=== PATIENT | male | born 1940 | race Caucasian/White ===

== ENCOUNTER 2016-10-07 13:53 | Emergency (ER) | payer MEDICARE, BC ==
[2016-10-07 14:01] VITALS: BP 126/74
--- NOTE | 2016-10-07 14:58 | EDM.PDOC ---
ED HPI GENERAL MEDICAL PROBLEM - General Chief Complaint: Upper Extremity Injury/Pain Stated Complaint: finger laceration Time Seen by Provider: 10/07/16 14:09 Source of Information: Reports: Patient History Limitations: Reports: No Limitations - History of Present Illness INITIAL COMMENTS - FREE TEXT/NARRATIVE: Patient is a 75-year-old was working on his garage door when he caught his hand and finger on the tension spring at that time he noticed that he had cut his finger and came in for evaluation and treatment denies significant pain at this time difficulty extending finger Onset: Today Onset Time: 12:30 Duration: Hour(s):, Other Location: Reports: Upper Extremity, Left Front/Back Body Image: 1 - laceration 4th finger distalend Quality: Reports: Dull Severity: Severe Improves with: Reports: None Worsens with: Reports: Movement Context: Reports: Activity Associated Symptoms: Reports: No Other Symptoms - Related Data Allergies Allergy/AdvReac Type Severity Reaction Status Date / Time No Known Allergies Allergy Verified 08/31/13 10:11 Home Meds: Home Meds Acetaminophen with Codeine [Tylenol with Codeine #3 Tablet] 1 each PO Q6HR #20 tablet 10/07/16 [Rx] Alendronate Sodium [Alendronate] 70 mg PO FR 10/07/16 [History] Aspirin [Adult Low Dose Aspirin EC] 81 mg PO DAILY 10/07/16 [History] Biotin 1 mg PO DAILY 10/07/16 [History] Calcium Carbonate [Calcium] 1,000 mg pe PO DAILY 10/07/16 [History] Cephalexin [Keflex] 500 mg PO Q6HR #30 capsule 10/07/16 [Rx] Cyanocobalamin (Vitamin B-12) [[place] B-12] 1,000 mcg PO DAILY 10/07/16 [ History] DULoxetine [Cymbalta] 60 mg PO DAILY 10/07/16 [History] Insulin Glarg,Human.Rec.Analog [LantUS Solostar] 15 - 20 units SUBCUT BEDTIME [History] Levothyroxine 25 mg PO DAILY 10/07/16 [History] Magnesium Amino Acid Chelate [Magnesium] 27 mg PO DAILY 10/07/16 [History] Multivitamin [Multi-Vitamin Daily] 1 mg PO DAILY 10/07/16 [History] Review of Systems - Review of Systems Review Of Systems: ROS reveals no pertinent complaints other than HPI. ED EXAM, GENERAL - Physical Exam Exam: See Below Exam Limited By: No Limitations General Appearance: Alert, WD/WN Eye Exam: Bilateral Eye: Normal Inspection Ears: Normal External Exam, Normal Canal Nose: Normal Inspection Throat/Mouth: Normal Inspection Head: Atraumatic, Normocephalic Neck: Normal Inspection, Supple, Non-Tender, Full Range of Motion Respiratory/Chest: No Respiratory Distress, Lungs Clear, Normal Breath Sounds, No Accessory Muscle Use, Chest Non-Tender Cardiovascular: Normal Peripheral Pulses, Regular Rate, Rhythm, No Edema, No Gallop, No JVD, No Murmur, No Rub GI/Abdominal: Other (History of gastric bypass) (Male) Exam: Deferred Rectal (Males) Exam: Deferred Back Exam: Normal Inspection Extremities: Other (Laceration of left fourth finger dorsal aspect about 2 cm distally) Neurological: Alert, Oriented, Normal Cognition, Normal Reflexes ED TRAUMA EXTREMITY PROCEDURES - Laceration/Wound Repair Left Distal Other Lac/wound length in cm: 2 Appearance: Stellate, Clean Distal NVT: Neuro & Vascular Intact Anesthetic Type: Other (Digital block) Local Anesthesia - Lidocaine (Xylocaine): 1% Plain Skin Prep: Chlorhexidine (Hibiciens) Saline irrigation (cc's): 1,000 Exploration/Debridement/Repair: Wound Explored (And irrigated profusely) Closed with: Sutures Suture Size: other (5.0) # of Sutures: 2 Course - Vital Signs Last Recorded V/S: Last Vital Signs Temp 97.3 F 10/07/16 13:56 Pulse 80 10/07/16 13:56 Resp 18 10/07/16 13:56 BP 126/74 10/07/16 13:56 Pulse Ox 93 L 10/07/16 13:56 - Orders/Labs/Meds Orders: Active Orders 24 hr Category Date Time Status Fingers Fourth Digit Lt F3 [CR] Stat Exams 10/07/16 14:07 Ordered Departure - Departure Time of Disposition: 15:45 Disposition: Home, Self-Care 01 Condition: good Clinical Impression: Laceration, Open fracture - Discharge Information Prescriptions: Acetaminophen with Codeine [Tylenol with Codeine #3 Tablet] 1 each PO Q6HR #20 tablet Cephalexin [Keflex] 500 mg PO Q6HR #30 capsule Referrals: Tawanna Omer PA-C [Primary Care Provider] - Everardo Karimi MD [Ordering Only Provider] - (Call [phone] for appointment to be seen on Tuesday or Tuesday. ) Forms: ED Department Discharge Additional Instructions: Return to ER for worsening symptoms - Problem List & Annotations (1) Laceration SNOMED Code(s): 943198241 Code(s): BHW6277 - Status: Acute Current Visit: Yes (2) Open fracture SNOMED Code(s): 372358863, 827923236 Code(s): T14.8 - OTHER INJURY OF UNSPECIFIED BODY REGION Status: Acute Current Visit: Yes Annotation/Comment:: left 4th digist distal phalynx dorsal aspect - Problem List Review Problem List Initiated/Reviewed/Updated: Yes - My Orders Last 24 Hours: My Active Orders 10/07/16 14:07 Fingers Fourth Digit Lt F3 [CR] Stat - Assessment/Plan Last 24 Hours: My Active Orders 10/07/16 14:07 Fingers Fourth Digit Lt F3 [CR] Stat Plan: Patient sent home on keflex on Tylenol #3 for pain. Patient to follow up with Dr. Karimi at [place].
[2016-10-07] MEDS ORDERED: Diphtheria,Pertussis(Acell),Tetanus Vaccine 0.5 ML SDV IM ONE (15:03)
[2016-10-07] MEDS ORDERED: Bacitracin/Neomycin/Polymyxin B Oint 0.9 GM U/D Packet ONE (15:28)
[2016-10-07] MEDS ORDERED: Bacitracin/Neomycin/Polymyxin B Oint 0.9 GM U/D Packet TOP ONE (15:55)
--- NOTE | 2016-10-07 15:57 | PCM.SN ---
- Free Text/Narrative Note: Discussed with Dr. Henderson treatment at this time we will go ahead and close the wound irrigated profusely with saline then refer him to Dr. Karimi for further treatment his phone number was given to the patient on instruction sheet tolerated well procedure sent home in satisfactory condition
== END 2016-10-07 16:15 | disposition home or self-care (01) ==
LOC: LL.ED 13:53
DX: S62.635B Displaced fracture of distal phalanx of left ring finger, initial encounter for open fracture (principal); Z23 Encounter for immunization; Z79.82 Long term (current) use of aspirin; Z79.899 Other long term (current) drug therapy; W23.0XXA Caught, crushed, jammed, or pinched between moving objects, initial encounter; Y93.89 Activity, other specified; Y92.59 Other trade areas as the place of occurrence of the external cause; Y99.0 Civilian activity done for income or pay
CPT/HCPCS: 12001; 73140-F3; 90471; 90715; 99282; 99283; L3999

== ENCOUNTER 2017-02-07 17:12 | Emergency (ER) | payer MEDICARE, BC ==
[2017-02-07 17:16] VITALS: BP 139/70
[2017-02-07] MEDS ORDERED: Bacitracin/Neomycin/Polymyxin B Oint 0.9 GM U/D Packet TOP ONE (17:48)
--- NOTE | 2017-02-07 18:05 | EDM.PDOC ---
ED HPI GENERAL MEDICAL PROBLEM - General Chief Complaint: Laceration Stated Complaint: Thumb laceration Time Seen by Provider: 02/07/17 17:38 Source of Information: Reports: Patient History Limitations: Reports: No Limitations - History of Present Illness INITIAL COMMENTS - FREE TEXT/NARRATIVE: Left thumb laceration on tip due to touching moving chain on chainsaw. Withdrew thumb immediately. Has some areas of missing skin. Thumb function intact. Sensation intact. Bleeding controlled prior to arrival. Denies other injuries. States that he is having minimal discomfort from injury. Denies other injuries. Other Treatments [employer]: pressure dressing applied by patient prior to arrival - Related Data Allergies Allergy/AdvReac Type Severity Reaction Status Date / Time No Known Allergies Allergy Verified 02/07/17 17:19 Home Meds: Home Meds Acetaminophen with Codeine [Tylenol with Codeine #3 Tablet] 1 each PO Q6HR #20 tablet 10/07/16 [Rx] Alendronate Sodium [Alendronate] 70 mg PO FR 10/07/16 [History] Aspirin [Adult Low Dose Aspirin EC] 81 mg PO DAILY 10/07/16 [History] Biotin 1 mg PO DAILY 10/07/16 [History] Calcium Carbonate [Calcium] 1,000 mg pe PO DAILY 10/07/16 [History] Cyanocobalamin (Vitamin B-12) [[place] B-12] 1,000 mcg PO DAILY 10/07/16 [ History] DULoxetine [Cymbalta] 60 mg PO DAILY 10/07/16 [History] Insulin Glarg,Human.Rec.Analog [LantUS Solostar] 15 - 20 units SUBCUT BEDTIME [History] Levothyroxine 25 mg PO DAILY 10/07/16 [History] Magnesium Amino Acid Chelate [Magnesium] 27 mg PO DAILY 10/07/16 [History] Multivitamin [Multi-Vitamin Daily] 1 mg PO DAILY 10/07/16 [History] Past Medical History Respiratory History: Reports: Sleep Apnea Other Respiratory History: wears CPAP at night Genitourinary History: Reports: Urinary Incontinence Musculoskeletal History: Reports: Arthritis Psychiatric History: Reports: Depression Endocrine/Metabolic History: Reports: IDDM Hematologic History: Reports: Anemia, B12 Deficiency - Infectious Disease History Infectious Disease History: Reports: Chicken Pox, Measles, Mumps, Shingles - Past Surgical History GI Surgical History: Reports: Bariatric Procedure, Colonoscopy, Polypectomy Social & Family History - Tobacco Use Smoking Status *Q: Former Smoker Years of Tobacco use: 0 Packs/Tins Daily: 0.2 Used Tobacco, but Quit: Yes Month Tobacco Last Used: quit 40 years ago Second Hand Smoke Exposure: No - Caffeine Use Caffeine Use: Reports: Coffee - Recreational Drug Use Recreational Drug Use: No ED ROS GENERAL - Review of Systems Review Of Systems: ROS reveals no pertinent complaints other than HPI. ED EXAM, SKIN/RASH Exam: See Below Exam Limited By: No Limitations General Appearance: Alert, WD/WN, No Apparent Distress Eye Exam: Bilateral Eye: EOMI, PERRL Head: Atraumatic, Normocephalic Neck: Supple Respiratory/Chest: No Respiratory Distress Extremities: Normal Range of Motion, Normal Capillary Refill, Other (Able to flex and extend affected left thumb without problem, NVI. Other fingers NVI with normal ROM. ) Neurological: Alert, Oriented, Normal Cognition, Normal Gait, No Motor/Sensory Deficits Psychiatric: Normal Affect, Normal Mood Skin: Warm, Dry, Other (Chewed up areas of epidermis noted at very end of left thumb, some exposure of subdermis. Overall injury does not appear to be deep. Nail intact. No bony involvment noted. Unable to approximate wound margins as some of the dermis was avulsed. ) Course - Vital Signs Last Recorded V/S: Last Vital Signs Temp 36.0 C 02/07/17 17:14 Pulse 62 02/07/17 17:14 Resp 20 02/07/17 17:14 BP 139/70 02/07/17 17:14 Pulse Ox 97 02/07/17 17:14 - Orders/Labs/Meds Meds: Medications Discontinued Medications Generic Name Dose Route Start Last Admin Trade Name Freq PRN Reason Stop Dose Admin Neomycin/Polymyxin/Bacitracin 1 each 02/07/17 17:48 02/07/17 17:52 Triple Antibiotic Oint TOP 02/07/17 17:49 1 each ONETIME ONE Administration - Re-Assessments/Exams Free Text/Narrative Re-Assessment/Exam: 02/07/17 18:15 Tetanus UTD. Wound soaked in Betadine. Due to the type of wound, it was not a candidate for suturing. Xeroform dressing/antibiotic ointment and bandaging performed by nursing staff. Wound care discussed extensively. He is to watch for signs of infection and keep the dressing in place with wound check and re-dressing recommended Tuesday. Departure - Departure Time of Disposition: 18:04 Disposition: Home, Self-Care 01 Condition: Good Clinical Impression: Laceration - Discharge Information Instructions: Laceration Care, Adult, [id number] Referrals: Tawanna Omer PA-C [Primary Care Provider] - Forms: ED Department Discharge Additional Instructions: Wound care as discussed. Follow up for wound check Tuesday at clinic. Call them tomorrow to make an appointment. Watch for any signs of infection and get rechecked if you have concerns.
== END 2017-02-07 18:25 | disposition home or self-care (01) ==
LOC: LL.ED 17:12
DX: S61.012A Laceration without foreign body of left thumb without damage to nail, initial encounter (principal); G47.30 Sleep apnea, unspecified; M19.90 Unspecified osteoarthritis, unspecified site; F32.9 Major depressive disorder, single episode, unspecified; E11.9 Type 2 diabetes mellitus without complications; Z86.2 Personal history of diseases of the blood and blood-forming organs and certain disorders involving the immune mechanism; Z79.4 Long term (current) use of insulin; Z79.84 Long term (current) use of oral hypoglycemic drugs; Z79.899 Other long term (current) drug therapy; W31.82XA Contact with other commercial machinery, initial encounter; Z98.84 Bariatric surgery status; Z87.891 Personal history of nicotine dependence
CPT/HCPCS: 99283

== ENCOUNTER 2017-08-30 15:02 | Emergency (ER) | payer MEDICARE, BC ==
--- NOTE | 2017-08-30 15:26 | EDM.PDOC ---
ED HPI GENERAL MEDICAL PROBLEM - General Chief Complaint: Neck Problem Stated Complaint: swelling and pain under chin Time Seen by Provider: 08/30/17 15:20 Source of Information: Reports: Patient, Family (), Old Records ([facility] chart/EMR) - History of Present Illness INITIAL COMMENTS - FREE TEXT/NARRATIVE: The patient drove himself to the emergency room via private automobile for evaluation of increasing redness and discomfort under his cheek with symptoms noticed at about 09:00 hours this morning. No history of acute injury, although he did have some nonspecific lower dental discomfort during the last few days. The patient did take 1000 mg of Tylenol at 11 AM today. His last dental appointment was about 5 months ago. The patient denies any chest pain/pressure, heart flutter, dizziness, orthostasis, orthopnea, diaphoresis, paresthesias, recent decreased exercise tolerance, or any other anginal-type symptoms. No recent history of abdominal pain, heartburn, nausea, diarrhea, melena, gross hematochezia, or any food intolerance, including fatty foods, etc.. He denies any recent gross hematuria, colic, or other UTI symptoms. The patient also denies any recent fever, cough, wheezing, dyspnea, etc.. The patient denies any problems with dysphagia, etc. from his current cellulitis. Onset: Today, Gradual Onset Date: 08/30/17 Onset Time: 09:00 Duration: Constant, Getting Worse Location: Reports: Face. Denies: Head, Neck, Chest, Abdomen, Back, Upper Extremity, Left, Upper Extremity, Right, Radiates to Quality: Reports: Ache, Throbbing Severity: Moderate Improves with: Reports: None Worsens with: Reports: None Context: Reports: Other (As above) Associated Symptoms: Denies: Confusion, Chest Pain, Cough, Diaphoresis, Fever/ Chills, Headaches, Loss of Appetite, Malaise, Nausea/Vomiting, Shortness of Breath, Weakness Treatments DE ICER FINISHER: Reports: Acetaminophen Neck Pain Score (Numeric/FACES): 7 - Related Data Allergies Allergy/AdvReac Type Severity Reaction Status Date / Time No Known Allergies Allergy Verified 08/30/17 15:04 Home Meds: Home Meds Aspirin [Adult Low Dose Aspirin EC] 81 mg PO DAILY 10/07/16 [History] Biotin 1 mg PO DAILY 10/07/16 [History] Calcium Carbonate [Calcium] 1,000 mg pe PO DAILY 10/07/16 [History] Cyanocobalamin (Vitamin B-12) [[place] B-12] 1,000 mcg PO DAILY 10/07/16 [ History] DULoxetine [Cymbalta] 60 mg PO DAILY 10/07/16 [History] Insulin Glarg,Human.Rec.Analog [LantUS Solostar] 15 - 20 units SUBCUT BEDTIME [History] Levothyroxine 25 mg PO DAILY 10/07/16 [History] Magnesium Amino Acid Chelate [Magnesium] 27 mg PO DAILY 10/07/16 [History] Multivitamin [Multi-Vitamin Daily] 1 mg PO DAILY 10/07/16 [History] Amoxicillin/Potassium Clav [Augmentin 875-125 Tablet] 1 each PO BIDMEALS #20 tablet 08/30/17 [Rx] Denosumab [Prolia] 60 mg SQ ASDIRECTED 08/30/17 [History] Tamsulosin [Flomax] 0.4 mg PO DAILY 08/30/17 [History] Past Medical History HEENT History: Reports: Cataract, Hard of Hearing, Other (See Below). Denies: Allergic Rhinitis, Glaucoma, Impaired Vision, Macular Degeneration, Retinal Detachment Other HEENT History: Bilateral presbycusismild. Mild bilateral tinnitus Cardiovascular History: Reports: CAD, High Cholesterol, Hypertension, Syncope, Other (See Below). Denies: Afib, Aneurysm, Arrhythmia, Blood Clots/VTE/DVT, Heart Murmur, [place], PVD Other Cardiovascular History: Near syncopal episode on 09/15/08. Dyslipidemia. Borderline inferior wall cardiac ischemia by Cardiolite scan in 2005 with negative subsequent heart catheterization as below. Respiratory History: Reports: Intubation, Previous, Sleep Apnea. Denies: Asthma , COPD, PE, Pneumothorax, Pulmonary Fibrosis, TB Other Respiratory History: Patient compliant with CPAP. Gastrointestinal History: Reports: Colon Polyp, Other (See Below). Denies: Celiac Disease, Cholelithiasis, Chronic Constipation, Chronic Diarrhea, Diverticulosis, Fecal Incontinence, Gastritis, GERD, GI Bleed, Hepatitis, Hiatal Hernia, Inflammatory Bowel Disease, Irritable Bowel Syndrome, Jaundice, Pancreatitis, PUD Other Gastrointestinal History: Previous history of unknown type of colonic polyps Genitourinary History: Reports: BPH, Urinary Incontinence, Other (See Below). Denies: Acute Renal Failure, Chronic Renal Insuffiency, Dialysis, Diabetic Nephropathy, Renal Calculus, STD, UTI, Recurrent Other Genitourinary History: Erectile dysfunction Musculoskeletal History: Reports: Arthritis, Back Pain, Chronic, Fracture, Neck Pain, Chronic, Osteoarthritis, Osteoporosis, Other (See Below). Denies: Amputation, Fibromyalgia, Gout, RA, SLE Other Musculoskeletal History: Middle phalangeal fracture of digit #4 of the left hand requiring surgery as below in 2017 Neurological History: Reports: Concussion, Head Trauma, Other (See Below). Denies: Cerebral Aneurysms, Headaches, Chronic, Migraines, MS, Neuropathy, Diabetic, Neuropathy, Peripheral, Parkinson's, Seizure, TIA Other Neuro History: Possible head concussion in January 2017 with no physician evaluation Psychiatric History: Reports: Addiction, Anxiety, Depression, Psych Hospitalization(s), Other (See Below). Denies: Abuse, Victim of, ADD, ADHD, Alzheimers Disease, Dementia, PTSD, Suicide Attempt, Suicidal Ideation Other Psychiatric History: 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 Endocrine/Metabolic History: Reports: Diabetes, Type II, Hypothyroidism, IDDM, Obesity/BMI 30+, Osteopenia, Other (See Below). Denies: Diabetes Mellitus, Type 3c Other Endocrine/Metabolic History: Obesity with previous gastric bypass Hematologic History: Reports: Anemia, B12 Deficiency. Denies: Blood Transfusion (s), Iron Deficiency Immunologic History: Reports: None. Denies: AIDS, HIV, SLE Oncologic (Cancer) History: Reports: None. Denies: Basal Cell Carcinoma, Colon , Hodgkin's Lymphoma, Leukemia, Lymphoma, Malignant Melanoma, Non-Hodgkin's Lymphoma, Prostate, Squamous Cell Carcinoma Dermatologic History: Reports: None. Denies: Eczema, Psoriasis - Infectious Disease History Infectious Disease History: Reports: Chicken Pox, Measles, Mumps, Shingles ( Date and region unknown). Denies: C-Difficile, Meningitis, Mononucleosis, MRSA , Pertussis (Whooping Cough), Rheumatic Fever, Rubella, Scarlet Fever, TB, VRE - Past Surgical History Head Surgeries/Procedures: Reports: None HEENT Surgical History: Reports: Cataract Surgery, Oral Surgery, Other (See Below). Denies: Adenoidectomy, Eye Surgery, Laser Surgery, LASIK, Myringotomy w Tube(s), Naso-Sinus Surgery, Tonsillectomy Other HEENT Surgeries/Procedures: Bilateral cataract surgery 2007. Tooth extractions. Cardiovascular Surgical History: Reports: None. Denies: Varicose Respiratory Surgical History: Reports: None. Denies: Thoracentesis GI Surgical History: Reports: Bariatric Procedure, Colonoscopy, Polypectomy, Other (See Below). Denies: Appendectomy, Cholecystectomy, EGD, Hernia, Abdominal, Hernia, Inguinal, Hernia Repair/Other Other GI Surgeries/Procedures: Last colonoscopy in about 2009 with previous history of polypectomy. Gastric bypass surgery in August 2013. Male Surgical History: Reports: Circumcision, Other (See Below). Denies: Vasectomy Other Male Surgeries/Procedures: Circumcision as an infant. Penile implant in about 2004. Endocrine Surgical History: Reports: None. Denies: Thyroidectomy Neurological Surgical History: Denies: C-Spine, Discectomy, Laminectomy, Lumbar Spine, Sacral Spine, Spinal Fusion, Thoracic Spine, Vertebroplasty Musculoskeletal Surgical History: Reports: ORIF, Other (See Below). Denies: Arthroscopic Procedure, Carpal Tunnel, Ganglion Cyst, Joint Replacement, Shoulder Surgery Other Musculoskeletal Surgeries/Procedures:: ORIF of middle phalangeal fracture of digit #4 of the left hand in 2016 Oncologic Surgical History: Reports: None Dermatological Surgical History: Reports: None - Past Imaging History Past Imaging History: Reports: Angiography (2005), CAT Scan (CT of the sinuses on 06/15/16), DEXA Scan (10/28/10), Sleep Study (09/29/05), Stress Testing ( Cardiolite stress test on 07/08/05 with findings as above with ejection fraction of 71%), Ultrasound (Scrotal ultrasound on 11/18/12. Complete abdominal ultrasound on 11/05/08.) Social & Family History - Tobacco Use Smoking Status *Q: Former Smoker Tobacco Use Within Last Twelve Months: No Years of Tobacco use: 14 Packs/Tins Daily: 0.5 Used Tobacco, but Quit: Yes Month/Year Tobacco Last Used: History of tobacco use between ages 18 and 32. Smoking Cessation Information Provided To Patient: No Second Hand Smoke Exposure: No Second Hand Smoke Education Provided: No - Caffeine Use Caffeine Use: Reports: Coffee (On cup per day), Soda (1 soda per week). Denies : Energy Drinks, Tea - Alcohol Use Alcohol Use History: Yes Days Per Week of Alcohol Use: 0 (History of alcohol abuse as above.) Number of Drinks Per Day: 0 Total Drinks Per Week: 0 Alcohol Use in Last Twelve Months: No - Recreational Drug Use Recreational Drug Use: No Drug Use in Last 12 Months: No Recreational Drug Type: Denies: Amphetamines (Speed), Cocaine, Heroin, Inhalants (Glues, Solvents, Aerosols), LSD (Acid), Marijuana/Hashish, Methamphetamine, Methaqualone, Morphine, Oxycodone - Living Situation & Occupation Living situation: Reports: ( his third in 05/05/2003 with no children from that relationship.), (second in 1995), ( first ), with Family, Other (No children) 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 ED EXAM, GENERAL - Physical Exam Exam: See Below Exam Limited By: No Limitations General Appearance: Alert, WD/WN, No Apparent Distress Eye Exam: Bilateral Eye: EOMI, Normal Inspection (No nystagmus), PERRL Ears: Normal External Exam, Normal Canal, Normal TMs, Hearing Loss (Borderline mild bilateral presbycusis) Nose: Normal Inspection, Normal Mucosa, No Blood Throat/Mouth: Normal Inspection, Normal Lips, Normal Teeth, Normal Gums, Normal Oropharynx, Normal Voice, No Airway Compromise. No: Dysphagia, Inflammation, Perioral Cyanosis Head: Atraumatic, Normocephalic. No: Facial Swelling, Facial Tenderness, Sinus Tenderness Neck: Supple, Full Range of Motion, Other (Mild swelling, trace erythema, and moderate palpation pain just inferior to the chin with no lymphangitis or evidence of abscess). No: Lymphadenopathy (L), Lymphadenopathy (R) Respiratory/Chest: No Respiratory Distress, Lungs Clear, Normal Breath Sounds, No Accessory Muscle Use, Chest Non-Tender. No: Pleural Rub, Retractions Cardiovascular: Normal Peripheral Pulses, Regular Rate, Rhythm, No Edema, No Gallop, No JVD, No Murmur, No Rub. No: Gallop/S3, Gallop/S4, Friction Rub Peripheral Pulses: 2+: Radial (L), Radial (R) GI/Abdominal: Normal Bowel Sounds, Soft, Non-Tender, No Organomegaly, No Distention, No Abnormal Bruit, No Mass, Other (obese). No: Guarding (Male) Exam: Deferred Rectal (Males) Exam: Deferred Back Exam: Normal Inspection, Full Range of Motion. No: CVA Tenderness (L), CVA Tenderness (R), Muscle Spasm Extremities: Normal Inspection, Normal Range of Motion, Non-Tender, No Pedal Edema, Normal Capillary Refill. No: Maryann's Sign Neurological: Alert, Oriented, CN II-XII Intact, Normal Cognition, Normal Gait, No Motor/Sensory Deficits Psychiatric: Normal Affect, Normal Mood Skin Exam: Intact, Other (As above). No: Diaphoretic, Ecchymosis, Lymphangitis , Wound/Incision Lymphatic: No Adenopathy Course - Vital Signs Last Recorded V/S: Last Vital Signs Temp 36.4 C 08/30/17 15:03 Pulse 59 L 08/30/17 15:02 Resp 16 08/30/17 15:02 BP 119/54 L 08/30/17 15:02 Pulse Ox 98 08/30/17 15:02 Vital Signs - 24 hr 08/30/17 08/30/17 15:02 15:03 Temperature [ 36.4 C Oral] Pulse, 59 L Peripheral [ Right Pulse Oximetry] Respiratory 16 Rate Blood Pressure 119/54 L [Right Upper Arm] O2 Sat by Pulse 98 Oximetry - Orders/Labs/Meds Labs: None Meds: Medications Discontinued Medications Generic Name Dose Route Start Last Admin Trade Name Freq PRN Reason Stop Dose Admin Ceftriaxone Sodium 1 gm 08/30/17 16:01 08/30/17 16:05 Rocephin IM 08/30/17 16:02 1 gm ONETIME ONE Administration Lidocaine HCl 5 ml 08/30/17 16:02 08/30/17 16:05 Xylocaine-Mpf 1% INJECT 08/30/17 16:03 5 ml ONETIME ONE Administration - Radiology Interpretation Free Text/Narrative:: None Departure - Departure Time of Disposition: 16:45 Disposition: Home, Self-Care 01 Condition: Good Clinical Impression: IDDM (insulin dependent diabetes mellitus), Mixed anxiety depressive disorder, Dyslipidemia, Hypothyroidism (acquired) Cellulitis Qualifiers: Site of cellulitis: face Qualified Code(s): L03.211 - Cellulitis of face Osteoarthritis Qualifiers: Osteoarthritis location: multiple joints Osteoarthritis type: primary Qualified Code(s): M15.0 - Primary generalized (osteo)arthritis Sleep apnea Qualifiers: Sleep apnea type: unspecified type Qualified Code(s): G47.30 - Sleep apnea, unspecified Hypertension Qualifiers: Hypertension type: essential hypertension Qualified Code(s): I10 - Essential ( primary) hypertension - Discharge Information Prescriptions: Amoxicillin/Potassium Clav [Augmentin 875-125 Tablet] 1 each PO BIDMEALS #20 tablet Instructions: Cellulitis, Adult, [id number] Forms: ED Department Discharge Additional Instructions: 1. Follow up with your regular provider in 10-14 days as needed, if symptoms persist. 2. Tylenol 650 mg by mouth every 4 hours and/or OTC ibuprofen 2-3 tabs by mouth every 6 hours with food as directed./needed. 3. Listerine gargles four times per day, after meals and at bedtime, with additional Chloroseptic lozenges or spray as needed for 10 days and/or until symptoms resolve. 4. Follow-up with your dentist STEVE as discussed 5. All your doctor's office STEVE or scheduling of recommended colonoscopy. You are not a candidate for Colegard as discussed - Problem List & Annotations (1) Cellulitis SNOMED Code(s): 189113669 Code(s): L03.90 - CELLULITIS, UNSPECIFIED Status: Acute Priority: High Onset Date: 08/30/17 Annotation/Comment:: IM Rocephin given in the emergency room with initiation of Augmentin tomorrow. Secondary to recent dental discomfort as above patient should also follow-up with his dentist STEVE. Otherwise follow-up on an as-needed basis as per discharge instructions. Qualifiers: Site of cellulitis: face Qualified Code(s): L03.211 - Cellulitis of face (2) Dyslipidemia SNOMED Code(s): 837307043 Code(s): E78.5 - HYPERLIPIDEMIA, UNSPECIFIED Status: Chronic Priority: Medium Annotation/Comment:: Not currently under therapy. Secondary to his IDDM , however, patient should likely be placed on a low-dose statin for cardiac prophylaxis. Recommend lipid panel STEVE. (3) Hypertension SNOMED Code(s): 87961502 Code(s): I10 - ESSENTIAL (PRIMARY) HYPERTENSION Status: Chronic Priority : Medium Annotation/Comment:: Blood pressures were under good control in the emergency room. He may benefit from low-dose KEON inhibitor secondary to his IDDM. Qualifiers: Hypertension type: essential hypertension Qualified Code(s): I10 - Essential (primary) hypertension (4) Hypothyroidism (acquired) SNOMED Code(s): 401013324 Code(s): E03.9 - HYPOTHYROIDISM, UNSPECIFIED Status: Chronic Priority: Medium Annotation/Comment:: Currently under therapy (5) IDDM (insulin dependent diabetes mellitus) SNOMED Code(s): 72227068 Code(s): E11.9 - TYPE 2 DIABETES MELLITUS WITHOUT COMPLICATIONS; Z79.4 - [facility] (CURRENT) USE OF INSULIN Status: Chronic Priority: Medium Annotation/Comment:: Home Accu-Cheks under good control with current twice a day regimen and average Accu-Cheks in the 100-140s by his history. (6) Mixed anxiety depressive disorder SNOMED Code(s): 671164725 Code(s): F41.8 - OTHER SPECIFIED ANXIETY DISORDERS Status: Chronic Priority: Medium Annotation/Comment:: Stable by patient history (7) Osteoarthritis SNOMED Code(s): 118480196 Code(s): M19.90 - UNSPECIFIED OSTEOARTHRITIS, UNSPECIFIED SITE Status: Chronic Priority: Medium Annotation/Comment:: Stable by patient history. Note additional history of osteoporosis with recent initiation of Prolia. Patient is currently on calcium supplementation but no vitamin D. Consider additional vitamin D therapy. Qualifiers: Osteoarthritis location: multiple joints Osteoarthritis type: primary Qualified Code(s): M15.0 - Primary generalized (osteo)arthritis (8) Sleep apnea SNOMED Code(s): 43251773 Code(s): G47.30 - SLEEP APNEA, UNSPECIFIED Status: Chronic Priority: Medium Annotation/Comment:: He was congratulated about his compliance with his CPAP. No recent fever or bronchitic type symptoms. Qualifiers: Sleep apnea type: unspecified type Qualified Code(s): G47.30 - Sleep apnea , unspecified - Problem List Review Problem List Initiated/Reviewed/Updated: Yes - Assessment/Plan Assessment:: As above Plan: As above. Extensive precautions were given to the patient and his , who are in agreement with the treatment plan. See Patient Instructions for further treatment and plan.
[2017-08-30 15:27] VITALS: BP 119/54
[2017-08-30] MEDS ORDERED: cefTRIAXone 1 GM Vial IM ONE (16:01)
== END 2017-08-30 16:47 | disposition home or self-care (01) ==
LOC: LL.ED 15:02
DX: L03.211 Cellulitis of face (principal); F41.8 Other specified anxiety disorders; E78.5 Hyperlipidemia, unspecified; M15.0 Primary generalized (osteo)arthritis; G47.30 Sleep apnea, unspecified; E78.00 Pure hypercholesterolemia, unspecified; I10 Essential (primary) hypertension; E11.9 Type 2 diabetes mellitus without complications; E03.9 Hypothyroidism, unspecified; Z79.82 Long term (current) use of aspirin; Z79.899 Other long term (current) drug therapy; Z79.4 Long term (current) use of insulin; Z87.891 Personal history of nicotine dependence
CPT/HCPCS: 96372; 99283; J0696

== ENCOUNTER 2018-11-22 16:44 | Emergency (ER) | payer MEDICARE, BC ==
[2018-11-22 16:56] VITALS: BP 114/56; PULSE 87
[2018-11-22] MEDS ORDERED: Bacitracin/Neomycin/Polymyxin B Oint 0.9 GM U/D Packet TOP ONE (17:23)
[2018-11-22] MEDS ORDERED: Bacitracin/Neomycin/Polymyxin B Oint 0.9 GM U/D Packet ONE (17:25)
--- NOTE | 2018-11-22 17:25 | EDM.PDOC ---
ED HPI GENERAL MEDICAL PROBLEM - General Chief Complaint: General Stated Complaint: FALL WITH ABRASIONS TO HAND AND FACE Time Seen by Provider: 11/22/18 16:52 Source of Information: Reports: Patient History Limitations: Reports: No Limitations - History of Present Illness INITIAL COMMENTS - FREE TEXT/NARRATIVE: Patient tripped over an extension cord and fell on driveway. Comes to the ER with an abrasion near the left eye as well as an abrasion to the back of the left hand. He denies LOC. No visual changes. No headache. Says he has minimal discomfort around the left eye/left hand. Denies other injuries. No neck pain/back pain/pelvic pain/arm or leg pain. Denies problems moving joints/fingers. Is currently on Augmentin to treat a sinus problem. - Related Data Allergies Allergy/AdvReac Type Severity Reaction Status Date / Time No Known Allergies Allergy Verified 11/22/18 16:45 Home Meds: Home Meds Aspirin [Adult Low Dose Aspirin EC] 81 mg PO DAILY 10/07/16 [History] Biotin 1 mg PO DAILY 10/07/16 [History] Calcium Carbonate [Calcium] 1,000 mg pe PO DAILY 10/07/16 [History] Cyanocobalamin (Vitamin B-12) [[place] B-12] 1,000 mcg PO DAILY 10/07/16 [ History] DULoxetine [Cymbalta] 60 mg PO DAILY 10/07/16 [History] Levothyroxine 25 mcg PO DAILY 10/07/16 [History] Magnesium Amino Acid Chelate [Magnesium] 27 mg PO DAILY 10/07/16 [History] Multivitamin [Multi-Vitamin Daily] 1 mg PO DAILY 10/07/16 [History] Amoxicillin/Potassium Clav [Augmentin 875-125 Tablet] 1 each PO BIDMEALS #20 tablet 08/30/17 [Rx] Tamsulosin [Flomax] 0.4 mg PO DAILY 08/30/17 [History] Insulin Detemir [Levemir Flextouch] 10 - 15 unit SQ BID@,20 11/22/18 [History] Past Medical History HEENT History: Reports: Cataract, Hard of Hearing, Other (See Below) Other HEENT History: Bilateral presbycusismild. Mild bilateral tinnitus Cardiovascular History: Reports: CAD, High Cholesterol, Hypertension, Syncope, Other (See Below) Other Cardiovascular History: Near syncopal episode on 5/17/09. Dyslipidemia. Borderline inferior wall cardiac ischemia by Cardiolite scan in 2005 with negative subsequent heart catheterization as below. Respiratory History: Reports: Intubation, Previous, Sleep Apnea Other Respiratory History: Patient compliant with CPAP. Gastrointestinal History: Reports: Colon Polyp, Other (See Below) Other Gastrointestinal History: Previous history of unknown type of colonic polyps Genitourinary History: Reports: BPH, Urinary Incontinence, Other (See Below) Other Genitourinary History: Erectile dysfunction Musculoskeletal History: Reports: Arthritis, Back Pain, Chronic, Fracture, Neck Pain, Chronic, Osteoarthritis, Osteoporosis, Other (See Below) Other Musculoskeletal History: Middle phalangeal fracture of digit #4 of the left hand requiring surgery as below in 2017 Neurological History: Reports: Concussion, Head Trauma, Other (See Below) Other Neuro History: Possible head concussion in January 2017 with no physician evaluation Psychiatric History: Reports: Addiction, Anxiety, Depression, Psych Hospitalization(s), Other (See Below) Other Psychiatric History: 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 Endocrine/Metabolic History: Reports: Diabetes, Type II, Hypothyroidism, IDDM, Obesity/BMI 30+, Osteopenia, Other (See Below) Other Endocrine/Metabolic History: Obesity with previous gastric bypass Hematologic History: Reports: Anemia, B12 Deficiency Immunologic History: Reports: None Oncologic (Cancer) History: Reports: None Dermatologic History: Reports: None - Infectious Disease History Infectious Disease History: Reports: Chicken Pox, Measles, Mumps, Shingles - Past Surgical History Head Surgeries/Procedures: Reports: None HEENT Surgical History: Reports: Cataract Surgery, Oral Surgery, Other (See Below) Other HEENT Surgeries/Procedures: Bilateral cataract surgery 2007. Tooth extractions. Cardiovascular Surgical History: Reports: None Respiratory Surgical History: Reports: None GI Surgical History: Reports: Bariatric Procedure, Colonoscopy, Polypectomy, Other (See Below) Other GI Surgeries/Procedures: Last colonoscopy in about 2009 with previous history of polypectomy. Gastric bypass surgery in August 2013. Male Surgical History: Reports: Circumcision, Other (See Below) Other Male Surgeries/Procedures: Circumcision as an . Penile implant in about 2004. Endocrine Surgical History: Reports: None Musculoskeletal Surgical History: Reports: ORIF, Other (See Below) Other Musculoskeletal Surgeries/Procedures:: ORIF of middle phalangeal fracture of digit #4 of the left hand in 2017 Oncologic Surgical History: Reports: None Dermatological Surgical History: Reports: None - Past Imaging History Past Imaging History: Reports: Angiography (2005), CAT Scan (CT of the sinuses on 06/15/16), DEXA Scan (10/28/10), Sleep Study (09/29/05), Stress Testing ( Cardiolite stress test on 07/08/05 with findings as above with ejection fraction of 71%), Ultrasound (Scrotal ultrasound on 11/18/12. 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 Denies: Dental Pain, Ear Pain, Nosebleed, Nose Pain, Throat Pain, Vertigo, Vision Change Respiratory: Reports: No Symptoms. Denies: Pleuritic Chest Pain Cardiovascular: Reports: No Symptoms. Denies: Chest Pain, Lightheadedness GI/Abdominal: Reports: No Symptoms. Denies: Abdominal Pain : Reports: No Symptoms Musculoskeletal: Reports: Hand Pain (mild discomfort in area of abrasion over back of left hand), Other. Denies: Neck Pain, Back Pain, Joint Pain, Joint Swelling Skin: Reports: Bruising (around abrasion adjacent to left eye), Wound ( abrasions as noted above, one near left lateral eye, one near left lateral cheek , and one over back of left hand) Neurological: Denies: Confusion, Dizziness, Headache, Syncope, Change in Speech Psychiatric: Reports: No Symptoms ED EXAM, GENERAL - Physical Exam Exam: See Below Exam Limited By: No Limitations General Appearance: Alert, WD/WN, No Apparent Distress Eye Exam: Bilateral Eye: EOMI, PERRL Ears: Normal External Exam Nose: Normal Inspection, No Blood. No: Nasal Tenderness, Nasal Deformity, Nasal Swelling, Nasal Drainage Throat/Mouth: Normal Lips, Normal Voice, No Airway Compromise Head: Facial Swelling (area of swelling/bruising/abrasion just lateral to left eye measuring 3cm across), Other (second abrasion noted left lateral cheek). No : Facial Tenderness Neck: Normal Inspection, Supple, Non-Tender, Full Range of Motion. No: Tender Lateral, Tender Midline Respiratory/Chest: No Respiratory Distress, Lungs Clear, Normal Breath Sounds, No Accessory Muscle Use, Chest Non-Tender Cardiovascular: Regular Rate, Rhythm, No Murmur GI/Abdominal: Soft, Non-Tender (Male) Exam: Deferred Rectal (Males) Exam: Deferred Back Exam: No: CVA Tenderness (L), CVA Tenderness (R), Muscle Spasm, Paraspinal Tenderness, Vertebral Tenderness Extremities: Normal Range of Motion, Normal Capillary Refill, Other (good icing coater strength both hands. No focal tenderness noted with palpation of fingers/ metacarpals/wrist on left hand where abrasion is noted. Limbs unremarkable for other acute injury. ) Neurological: Alert, Oriented, Normal Cognition, Normal Gait, Other (equal tone/ strength upper and lower limbs) Psychiatric: Normal Affect, Normal Mood Skin Exam: Warm, Dry, Ecchymosis (left lateral eye), Other (abrasions as noted above, lateral to left eye, left lateral cheek, and dorsal left hand) Course - Vital Signs Last Recorded V/S: Last Vital Signs Temp 36.6 C 11/22/18 16:55 Pulse 87 11/22/18 16:55 Resp 16 11/22/18 16:55 BP 114/56 L 11/22/18 16:55 Pulse Ox 92 L 11/22/18 16:55 - Orders/Labs/Meds Meds: Medications Discontinued Medications Generic Name Dose Route Start Last Admin Trade Name Freq PRN Reason Stop Dose Admin Neomycin/Polymyxin/Bacitracin 1 each 11/22/18 17:23 11/22/18 17:25 Triple Antibiotic Oint TOP 11/22/18 17:24 1 each ONETIME ONE Administration Neomycin/Polymyxin/Bacitracin Confirm 11/22/18 17:25 Triple Antibiotic Oint Administered 11/22/18 17:26 Dose 1 each .ROUTE .STK-MED ONE - Re-Assessments/Exams Free Text/Narrative Re-Assessment/Exam: Lacerations cleansed and bandaged by nursing staff. No suspicion of fractures at this time. Patient is on Augmentin which will also help cover him for potential of cellulitis/skin infection. Precautions reviewed. Wound care reviewed. To follow up as needed if any problems are noted. Departure - Departure Time of Disposition: 17:22 Disposition: Home, Self-Care 01 Condition: Good Clinical Impression: Multiple abrasions Fall Qualifiers: Encounter type: initial encounter Qualified Code(s): W19.XXXA - Unspecified fall, initial encounter - Discharge Information *PRESCRIPTION DRUG MONITORING PROGRAM REVIEWED*: Not Applicable *COPY OF PRESCRIPTION DRUG MONITORING REPORT IN PATIENT CHANG: Not Applicable Instructions: Abrasion, [id number] Referrals: Tawanna Omer PA-C [Primary Care Provider] - Forms: ED Department Discharge Additional Instructions: Continue your current antibiotic as directed. OK to apply topical antibiotic twice daily onto abrasions and cover with a bandage until they are healed. Follow up as needed if you have any problems/concerns or signs of infection.
== END 2018-11-22 17:40 | disposition home or self-care (01) ==
LOC: LL.ED 16:44
DX: S00.12XA Contusion of left eyelid and periocular area, initial encounter (principal); S00.81XA Abrasion of other part of head, initial encounter; S60.512A Abrasion of left hand, initial encounter; E78.00 Pure hypercholesterolemia, unspecified; I25.10 Atherosclerotic heart disease of native coronary artery without angina pectoris; I10 Essential (primary) hypertension; F41.9 Anxiety disorder, unspecified; F32.9 Major depressive disorder, single episode, unspecified; E11.9 Type 2 diabetes mellitus without complications; E03.9 Hypothyroidism, unspecified; Z79.82 Long term (current) use of aspirin; Z79.899 Other long term (current) drug therapy; Z79.4 Long term (current) use of insulin; W01.0XXA Fall on same level from slipping, tripping and stumbling without subsequent striking against object, initial encounter
CPT/HCPCS: 94640; 99282; 99283-25

== ENCOUNTER 2019-09-23 19:43 | Observation (INO) | payer MEDICARE, BC ==
[2019-09-23 21:11] LABS: CHLORIDE,CL 100 mmol/L (98-107); SODIUM,NA 137 mmol/L (136-145)
--- NOTE | 2019-09-23 21:29 | EDM.PDOC ---
ED HPI GENERAL MEDICAL PROBLEM - General Chief Complaint: General Stated Complaint: FEVER, CONFUSION Time Seen by Provider: 09/23/19 20:31 Source of Information: Reports: Patient, Family History Limitations: Reports: No Limitations - History of Present Illness INITIAL COMMENTS - FREE TEXT/NARRATIVE: Patient brought to ER due to episode of weakness, mild confusion, shaking chills , temp 100.4. Interacting normally during ER interview/oriented. Said he felt fine this morning. Noted the weakness when trying to bring groceries into his home. No noted health changes over this past week. He does say that emotionally it was a rough week as both his sister and 16yr old grandson last weekend on the same day. Has been around other people because of this. No known Covid exposure however. . Lives with . She has not had any recent illness. good appetite, no weight changes. HEENT negative for VIGIL/vision change/congestion/ear pain/vertigo/sore throat RESP negative for cough/wheeze/SOB/pleuritic pain CV negative for chest pain/palpitations/syncope/dizziness/SOB GI negative for nausea/emesis/bowel changes/loose stools/blood in stool/ abdominal pain positive for longtime history of urinary urgency/wears Depends due to some incontinence issues Neuro negative for focal changes/speech change Skin negative for rash/other changes Musc/skel negative for any acute aches/pains when asked, however attending nurse says that initially he said yes when asked if he had any body aches. - Related Data Allergies Allergy/AdvReac Type Severity Reaction Status Date / Time No Known Allergies Allergy Verified 09/23/19 19:48 Home Meds: Home Meds Aspirin [Adult Low Dose Aspirin EC] 81 mg PO QPM 10/07/16 [History] Cyanocobalamin (Vitamin B-12) [[place] B-12] 1,000 mcg PO DAILY 10/07/16 [ History] DULoxetine [Cymbalta] 60 mg PO QPM 10/07/16 [History] Levothyroxine 25 mcg PO QAM 10/07/16 [History] Multivitamin [Multi-Vitamin Daily] 1 mg PO QAM 10/07/16 [History] Tamsulosin [Flomax] 2 cap PO QAM 08/30/17 [History] Insulin Detemir [Levemir Flextouch] 10 - 15 unit SQ BID@12,20 11/22/18 [History] Biotin 10 mg PO QAM 09/23/19 [History] Calcium Carbonate/Vitamin D3 [Calcium 600 + Vit D Tablet] 1 tab PO BID 09/23/19 [History] Finasteride 5 mg PO QAM 09/23/19 [History] Potassium Gluconate 99 mg PO QAM 09/23/19 [History] Rosuvastatin [Crestor] 5 mg PO QAM 09/23/19 [History] Vit D3 & K/Berberine HCl/Hops [Ostera] 25 mg PO QAM 09/23/19 [History] metFORMIN HCl [Metformin ER Gastric] 500 mg PO QAM 09/23/19 [History] Past Medical History HEENT History: Reports: Cataract, Hard of Hearing, Other (See Below) Other HEENT History: Bilateral presbycusismild. Mild bilateral tinnitus Cardiovascular History: Reports: CAD, High Cholesterol, Hypertension, Syncope, Other (See Below) Other Cardiovascular History: Near syncopal episode on 09/15/08. Dyslipidemia. Borderline inferior wall cardiac ischemia by Cardiolite scan in 2005 with negative subsequent heart catheterization as below. Respiratory History: Reports: Intubation, Previous, Sleep Apnea Other Respiratory History: Patient compliant with CPAP. Gastrointestinal History: Reports: Colon Polyp, Other (See Below) Other Gastrointestinal History: Previous history of unknown type of colonic polyps Genitourinary History: Reports: BPH, Urinary Incontinence, Other (See Below) Other Genitourinary History: Erectile dysfunction Musculoskeletal History: Reports: Arthritis, Back Pain, Chronic, Fracture, Neck Pain, Chronic, Osteoarthritis, Osteoporosis, Other (See Below) Other Musculoskeletal History: Middle phalangeal fracture of digit #4 of the left hand requiring surgery as below in 2017 Neurological History: Reports: Concussion, Head Trauma, Other (See Below) Other Neuro History: Possible head concussion in January 2017 with no physician evaluation Psychiatric History: Reports: Addiction, Anxiety, Depression, Psych Hospitalization(s), Other (See Below) Other Psychiatric History: 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 Endocrine/Metabolic History: Reports: Diabetes, Type II, Hypothyroidism, IDDM, Obesity/BMI 30+, Osteopenia, Other (See Below) Other Endocrine/Metabolic History: Obesity with previous gastric bypass Hematologic History: Reports: Anemia, B12 Deficiency Immunologic History: Reports: None Oncologic (Cancer) History: Reports: None Dermatologic History: Reports: None - Infectious Disease History Infectious Disease History: Reports: Chicken Pox, Measles, Mumps, Shingles - Past Surgical History Head Surgeries/Procedures: Reports: None HEENT Surgical History: Reports: Cataract Surgery, Oral Surgery, Other (See Below) Other HEENT Surgeries/Procedures: Bilateral cataract surgery 2007. Tooth extractions. Cardiovascular Surgical History: Reports: None Respiratory Surgical History: Reports: None GI Surgical History: Reports: Bariatric Procedure, Colonoscopy, Polypectomy, Other (See Below) Other GI Surgeries/Procedures: Last colonoscopy in about 2009 with previous history of polypectomy. Gastric bypass surgery in August 2013. Male Surgical History: Reports: Circumcision, Other (See Below) Other Male Surgeries/Procedures: Circumcision as an infant. Penile implant in about 2004. Endocrine Surgical History: Reports: None Musculoskeletal Surgical History: Reports: ORIF, Other (See Below) Other Musculoskeletal Surgeries/Procedures:: ORIF of middle phalangeal fracture of digit #4 of the left hand in 2016 Oncologic Surgical History: Reports: None Dermatological Surgical History: Reports: None - Past Imaging History Past Imaging History: Reports: Angiography (2005), CAT Scan (CT of the sinuses on 06/15/16), DEXA Scan (10/28/10), Sleep Study (09/29/05), Stress Testing ( Cardiolite stress test on 07/08/05 with findings as above with ejection fraction of 71%), Ultrasound (Scrotal ultrasound on 11/18/12. 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 ED EXAM, GENERAL - Physical Exam Exam: See Below Exam Limited By: No Limitations General Appearance: Alert, WD/WN, No Apparent Distress Eye Exam: Bilateral Eye: EOMI, PERRL Ears: Hearing Grossly Normal Nose: No: Nasal Deformity, Nasal Swelling, Nasal Drainage Throat/Mouth: Normal Lips, Normal Voice, No Airway Compromise Head: Atraumatic, Normocephalic Neck: Normal Inspection, Supple, Non-Tender, Full Range of Motion. No: Lymphadenopathy (L), Lymphadenopathy (R) Respiratory/Chest: No Respiratory Distress, Lungs Clear, Normal Breath Sounds, No Accessory Muscle Use, Chest Non-Tender Cardiovascular: Regular Rate, Rhythm, No Edema, No Murmur GI/Abdominal: Normal Bowel Sounds, Soft, Non-Tender, No Distention (Male) Exam: Deferred Rectal (Males) Exam: Deferred Back Exam: Normal Inspection. No: CVA Tenderness (L), CVA Tenderness (R), Muscle Spasm, Paraspinal Tenderness, Vertebral Tenderness Extremities: Non-Tender, No Pedal Edema, Normal Capillary Refill Neurological: Alert, Oriented, CN II-XII Intact, Normal Cognition, No Motor/ Sensory Deficits Psychiatric: Normal Affect, Normal Mood Skin Exam: Warm, Dry, Intact, Normal Color, No Rash Course - Vital Signs Last Recorded V/S: Last Vital Signs Temp 37.9 C 09/23/19 19:56 Pulse 94 09/23/19 19:56 Resp 28 H 09/23/19 19:56 BP 123/56 L 09/23/19 19:56 Pulse Ox 98 09/23/19 19:56 - Orders/Labs/Meds Orders: Active Orders 24 hr Category Date Time Status Chest 2V [CR] Stat Exams 09/23/19 20:09 Taken CORONAVIRUS COVID-19 PCR PHL Stat Lab 09/23/19 20:50 Received CULTURE BLOOD [BC] Stat Lab 09/23/19 20:25 Received CULTURE BLOOD [BC] Stat Lab 09/23/19 20:30 Received Blood Culture x2 Reflex Set [OM.PC] Stat Oth 09/23/19 20:13 Ordered Labs: Laboratory Tests 09/23/19 09/23/19 09/23/19 Range/Units 20:25 20:25 20:25 WBC 6.0 (4.0-10.2) K/uL RBC 4.21 L (4.33-5.41) M/uL Hgb 13.7 (13.1-16.8) g/dL Hct 38.9 L (39.0-49.0) % MCV 92.4 (84.0-98.0) fL MCH 32.5 (28.2-33.3) pg MCHC 35.2 (31.7-36.0) g/dL RDW 13.0 (11.2-14.1) % Plt Count 156 (150-350) K/uL Neut % (Auto) 94.6 H (45.0-80.0) % Lymph % (Auto) 2.8 L (10.0-50.0) % Jones % (Auto) 2.2 (2.0-14.0) % Eos % (Auto) 0.2 (0.0-5.0) % Baso % (Auto) 0.2 (0.0-2.0) % Neut # (Auto) 5.70 (1.40-7.00) K/uL Lymph # (Auto) 0.17 L (0.50-3.50) K/uL Jones # (Auto) 0.13 (0.00-1.00) K/uL Eos # (Auto) 0.01 (0.00-0.50) K/uL Baso # (Auto) 0.01 (0.00-0.20) K/uL Sodium 137 (136-145) mmol/L Potassium 3.2 L (3.5-5.1) mmol/L Chloride 100 (98-107) mmol/L Carbon Dioxide 22.7 (21.0-32.0) mmol/L BUN 18 (7-18) mg/dL Creatinine 0.62 (0.51-1.17) mg/dL Est Cr Clr Drug Dosing TNP Estimated GFR (MDRD) > 60 mL/min Glucose 210 H (74-106) mg/dL Lactic Acid 2.3 H (0.4-2.0) mmol/L Calcium 8.5 (8.5-10.1) mg/dL Magnesium 1.4 L (1.8-2.4) mg/dL Total Bilirubin 0.7 (0.2-1.0) mg/dL AST 38 H (15-37) U/L ALT 86 H (12-78) U/L Alkaline Phosphatase 90 (46-116) IU/L Total Protein 6.8 (6.4-8.2) g/dL Albumin 3.9 (3.4-5.0) g/dL Specimen Type Urine Color Urine Appearance Urine pH (5.0-9.0) Ur Specific [place] (1.005-1.030) Urine Protein (NEGATIVE) mg/dL Urine Glucose (UA) (NEGATIVE) mg/dL Urine Ketones (NEGATIVE) mg/dL Urine Occult Blood (NEGATIVE) Urine Nitrite (NEGATIVE) Urine Bilirubin (NEGATIVE) Urine Urobilinogen (0.2-1.0) E.U./dL Ur Leukocyte Esterase (NEGATIVE) Urine RBC /HPF Urine WBC /HPF Ur Epithelial Cells /LPF Urine Bacteria (NONE TO FEW) /HPF Urine Mucus (NEGATIVE) /LPF 09/23/19 Range/Units 20:50 WBC (4.0-10.2) K/uL RBC (4.33-5.41) M/uL Hgb (13.1-16.8) g/dL Hct (39.0-49.0) % MCV (84.0-98.0) fL MCH (28.2-33.3) pg MCHC (31.7-36.0) g/dL RDW (11.2-14.1) % Plt Count (150-350) K/uL Neut % (Auto) (45.0-80.0) % Lymph % (Auto) (10.0-50.0) % Jones % (Auto) (2.0-14.0) % Eos % (Auto) (0.0-5.0) % Baso % (Auto) (0.0-2.0) % Neut # (Auto) (1.40-7.00) K/uL Lymph # (Auto) (0.50-3.50) K/uL Jones # (Auto) (0.00-1.00) K/uL Eos # (Auto) (0.00-0.50) K/uL Baso # (Auto) (0.00-0.20) K/uL Sodium (136-145) mmol/L Potassium (3.5-5.1) mmol/L Chloride (98-107) mmol/L Carbon Dioxide (21.0-32.0) mmol/L BUN (7-18) mg/dL Creatinine (0.51-1.17) mg/dL Est Cr Clr Drug Dosing Estimated GFR (MDRD) mL/min Glucose (74-106) mg/dL Lactic Acid (0.4-2.0) mmol/L Calcium (8.5-10.1) mg/dL Magnesium (1.8-2.4) mg/dL Total Bilirubin (0.2-1.0) mg/dL AST (15-37) U/L ALT (12-78) U/L Alkaline Phosphatase (46-116) IU/L Total Protein (6.4-8.2) g/dL Albumin (3.4-5.0) g/dL Specimen Type [place] Urine Color Yellow Urine Appearance Clear Urine pH 5.0 (5.0-9.0) Ur Specific [place] 1.025 (1.005-1.030) Urine Protein Negative (NEGATIVE) mg/dL Urine Glucose (UA) 500 H (NEGATIVE) mg/dL Urine Ketones Negative (NEGATIVE) mg/dL Urine Occult Blood Negative (NEGATIVE) Urine Nitrite Negative (NEGATIVE) Urine Bilirubin Negative (NEGATIVE) Urine Urobilinogen 0.2 (0.2-1.0) E.U./dL Ur Leukocyte Esterase Negative (NEGATIVE) Urine RBC 0-5 /HPF Urine WBC 0-5 /HPF Ur Epithelial Cells Few /LPF Urine Bacteria Rare (NONE TO FEW) /HPF Urine Mucus Few H (NEGATIVE) /LPF - Radiology Interpretation Free Text/Narrative:: Chest xray did not appear to show acute localized infiltrate/pneumothorax/other acute abnormalities. - Re-Assessments/Exams Free Text/Narrative Re-Assessment/Exam: 09/23/19 21:33 Labs including Covid testing and blood cultures were performed. BP 123/56 O2 sats 98% with RR 28 WBC normal. Lactic minimally elevated at 2.3 Mag low at 1.4 K low at 3.2 AST and ALT elevated at 38 and 86 respectively. Review of chart shows that patient had normal levels when previously tested. UA unremarkable for infection No focal bacterial infection identified on exam/initial workup. Suspect developing viral infection is possible given presenting complaints and lab results. Blood cultures pending. Plan at this time is to admit for correction of Magnesium levels and continued observation. Antibiotic coverage not initiated at this time given the above. Patient agreeable with plan. Departure - Departure Time of Disposition: 21:38 Disposition: Refer to Observation Condition: Good Clinical Impression: Hypomagnesemia, Hypokalemia, Elevated LFTs, Elevated lactic acid level - Discharge Information *PRESCRIPTION DRUG MONITORING PROGRAM REVIEWED*: Not Applicable *COPY OF PRESCRIPTION DRUG MONITORING REPORT IN PATIENT CHANG: Not Applicable Referrals: Tawanna Omer PA-C [Primary Care Provider] - Sepsis Event Note - Evaluation Sepsis Screening Result: Possible Sepsis Risk - Focused Exam Vital Signs: Vital Signs Temp Pulse Resp BP Pulse Ox 09/23/19 19:56 37.9 C 94 28 H 123/56 L 98 Date Exam was Performed: 09/23/19 Time Exam was Performed: 21:21 - Problem List & Annotations (1) Hypomagnesemia SNOMED Code(s): 670810877 Code(s): E83.42 - HYPOMAGNESEMIA Status: Acute Priority: High Current Visit: Yes Annotation/Comment:: Admitted observation and will receive IV supplementation with recheck in AM (2) Hypokalemia SNOMED Code(s): 75849779 Code(s): E87.6 - HYPOKALEMIA Status: Acute Priority: Medium Current Visit: Yes Annotation/Comment:: Oral replacement will be initiated. Level rechecked in AM (3) Elevated lactic acid level SNOMED Code(s): 5359555 Code(s): R79.89 - OTHER SPECIFIED ABNORMAL FINDINGS OF BLOOD CHEMISTRY Status: Acute Current Visit: Yes (4) Elevated LFTs SNOMED Code(s): 462854977, 324849493 Code(s): R79.89 - OTHER SPECIFIED ABNORMAL FINDINGS OF BLOOD CHEMISTRY Status: Acute Priority: Medium Current Visit: Yes Annotation/Comment:: AST and ALT elevated. May be secondary to viral infection. Continue to monitor. (5) Osteoarthritis SNOMED Code(s): 707742269 Code(s): M19.90 - UNSPECIFIED OSTEOARTHRITIS, UNSPECIFIED SITE Status: Chronic Priority: Low Current Visit: No Annotation/Comment:: Stable by patient history. Qualifiers: Osteoarthritis location: multiple joints Osteoarthritis type: primary (6) Sleep apnea SNOMED Code(s): 48980887 Code(s): G47.30 - SLEEP APNEA, UNSPECIFIED Status: Chronic Priority: Low Current Visit: No Annotation/Comment:: He was congratulated about his compliance with his CPAP. No recent fever or bronchitic type symptoms. Qualifiers: Sleep apnea type: unspecified type Qualified Code(s): G47.30 - Sleep apnea , unspecified (7) Mixed anxiety depressive disorder SNOMED Code(s): 597880462 Code(s): F41.8 - OTHER SPECIFIED ANXIETY DISORDERS Status: Chronic Priority: Low Current Visit: No Annotation/Comment:: Stable by patient history (8) Hypertension SNOMED Code(s): 32285585 Code(s): I10 - ESSENTIAL (PRIMARY) HYPERTENSION Status: Chronic Priority : Medium Current Visit: No Annotation/Comment:: Monitor BP trends Qualifiers: Hypertension type: essential hypertension Qualified Code(s): I10 - Essential (primary) hypertension (9) Dyslipidemia SNOMED Code(s): 451110171 Code(s): E78.5 - HYPERLIPIDEMIA, UNSPECIFIED Status: Chronic Priority: Medium Current Visit: No Annotation/Comment:: Under therapy (10) Hypothyroidism (acquired) SNOMED Code(s): 035737213 Code(s): E03.9 - HYPOTHYROIDISM, UNSPECIFIED Status: Chronic Priority: Medium Current Visit: No Annotation/Comment:: Currently under therapy - Problem List Review Problem List Initiated/Reviewed/Updated: Yes - My Orders Last 24 Hours: My Active Orders 09/23/19 20:09 Chest 2V [CR] Stat 09/23/19 20:13 Blood Culture x2 Reflex Set [OM.PC] Stat 09/23/19 20:25 CULTURE BLOOD [BC] Stat 09/23/19 20:30 CULTURE BLOOD [BC] Stat 09/23/19 20:50 CORONAVIRUS COVID-19 PCR PHL Stat - Assessment/Plan Admission H&P: Please use this note as an admission H&P Last 24 Hours: My Active Orders 09/23/19 20:09 Chest 2V [CR] Stat 09/23/19 20:13 Blood Culture x2 Reflex Set [OM.PC] Stat 09/23/19 20:25 CULTURE BLOOD [BC] Stat 09/23/19 20:30 CULTURE BLOOD [BC] Stat 09/23/19 20:50 CORONAVIRUS COVID-19 PCR PHL Stat Assessment:: as above. Admit observation. Patient stable and suitable for general supervision Plan: as above. Recheck levels in AM. Observe for return of shaking chills/fever and development of other signs/symptoms of acute infection. Covid testing performed and results pending. Anticipate 2 days observation to replace Mag and make certain that level remains corrected once within normal range. IV fluids/ recheck Lactic acid in AM. May need to consider admission/other therapies depending on patient's clinical course, outcome of Covid testing.
[2019-09-23] MEDS ORDERED: Temazepam 15 MG Cap PO PRN (21:49)
[2019-09-23] MEDS ORDERED: Potassium Chloride 20 MEQ Tab.ER PO ONE (21:55)
[2019-09-23] MEDS ORDERED: Sodium Chloride 0.9% 1,000 ML IV SCH (22:00)
[2019-09-23] MEDS ORDERED: Sodium Chloride 0.9% 250 ML IV ONE (22:06)
[2019-09-23] MEDS: Acetaminophen 325 MG Tab PO PRN (22:59)
[2019-09-24] MEDS: Sodium Chloride 0.9% 1,000 ML IV SCH ×3 (00:55→17:33)
[2019-09-24] MEDS ORDERED: Potassium Chloride 20 MEQ Tab.ER PO ONE ×3 (02:00→06:00)
[2019-09-24] MEDS: Acetaminophen 325 MG Tab PO PRN ×4 (06:34→21:25)
[2019-09-24 07:44] LABS: CHLORIDE,CL 104 mmol/L (98-107); SODIUM,NA 138 mmol/L (136-145)
[2019-09-24] MEDS: Levothyroxine 25 MCG Tab PO SCH (08:57)
[2019-09-24] MEDS: metFORMIN 500 MG Tab.ER PO SCH (08:57)
[2019-09-24] MEDS: Tamsulosin 0.4 MG Cap.ER PO SCH (08:57)
[2019-09-24] MEDS: Rosuvastatin 10 MG Tab PO SCH (08:57)
[2019-09-24] MEDS: Finasteride 5 MG Tab PO SCH (08:59)
[2019-09-24] MEDS: Insulin Lispro 100 Units/ML 3 ML Vial SUBCUT SCH ×3 (11:54→20:35)
[2019-09-24] MEDS: cefTRIAXone 1 GM Vial IVPUSH SCH (11:57)
--- NOTE | 2019-09-24 12:48 | PCM.PN ---
- General Info Date of Service: 09/24/19 Admission Dx/Problem (Free Text): Patient admitted for further evaluation and treatment of low magnesium, low K, and episode of confusion/shaking chills/fever Subjective Update: Patient is feeling improved today. Does recall having intermittent lower right tooth pain over the past several months. Functional Status: Reports: Pain Controlled, Tolerating Diet, Ambulating, Urinating. Denies: New Symptoms - Review of Systems General: Reports: Fever HEENT: Reports: Other (right lower tooth pain) Pulmonary: Reports: No Symptoms Cardiovascular: Reports: No Symptoms Gastrointestinal: Reports: No Symptoms Genitourinary: Reports: No Symptoms Musculoskeletal: Reports: Other (some body aches yesterday) Skin: Reports: No Symptoms Neurological: Reports: Confusion (yesterday. Currently resolved). Denies: Headache Psychiatric: Denies: Depression, Mood Lability, Anxiety, Agitation, Cravings, Hallucinations - Patient Data Vitals - Most Recent: Last Vital Signs Temp 36.8 C 09/24/19 12:04 Pulse 74 09/24/19 12:04 Resp 18 09/24/19 12:04 BP 118/57 L 09/24/19 12:04 Pulse Ox 100 09/24/19 12:04 Weight - Most Recent: 73.663 kg I&O - Last 24 Hours: Intake & Output 09/23/19 09/24/19 09/24/19 22:59 06:59 14:59 Intake Total 568 1368 360 Output Total 400 175 Balance 568 968 185 Lab Results Last 24 Hours: Laboratory Results - last 24 hr 09/23/19 09/23/19 09/23/19 Range/Units 20:25 20:25 20:25 WBC 6.0 (4.0-10.2) K/uL RBC 4.21 L (4.33-5.41) M/uL Hgb 13.7 (13.1-16.8) g/dL Hct 38.9 L (39.0-49.0) % MCV 92.4 (84.0-98.0) fL MCH 32.5 (28.2-33.3) pg MCHC 35.2 (31.7-36.0) g/dL RDW 13.0 (11.2-14.1) % Plt Count 156 (150-350) K/uL Neut % (Auto) 94.6 H (45.0-80.0) % Lymph % (Auto) 2.8 L (10.0-50.0) % Parker % (Auto) 2.2 (2.0-14.0) % Eos % (Auto) 0.2 (0.0-5.0) % Baso % (Auto) 0.2 (0.0-2.0) % Neut # (Auto) 5.70 (1.40-7.00) K/uL Lymph # (Auto) 0.17 L (0.50-3.50) K/uL Parker # (Auto) 0.13 (0.00-1.00) K/uL Eos # (Auto) 0.01 (0.00-0.50) K/uL Baso # (Auto) 0.01 (0.00-0.20) K/uL Sodium 137 (136-145) mmol/L Potassium 3.2 L (3.5-5.1) mmol/L Chloride 100 (98-107) mmol/L Carbon Dioxide 22.7 (21.0-32.0) mmol/L BUN 18 (7-18) mg/dL Creatinine 0.62 (0.51-1.17) mg/dL Est Cr Clr Drug Dosing TNP Estimated GFR (MDRD) > 60 mL/min Glucose 210 H (74-106) mg/dL POC Glucose (65-110) mg/dl Lactic Acid 2.3 H (0.4-2.0) mmol/L Calcium 8.5 (8.5-10.1) mg/dL Magnesium 1.4 L (1.8-2.4) mg/dL Total Bilirubin 0.7 (0.2-1.0) mg/dL AST 38 H (15-37) U/L ALT 86 H (12-78) U/L Alkaline Phosphatase 90 (46-116) IU/L Total Protein 6.8 (6.4-8.2) g/dL Albumin 3.9 (3.4-5.0) g/dL TSH, Ultra Sensitive (0.358-3.740) mIU/mL Specimen Type Urine Color Urine Appearance Urine pH (5.0-9.0) Ur Specific Elizabeth (1.005-1.030) Urine Protein (NEGATIVE) mg/dL Urine Glucose (UA) (NEGATIVE) mg/dL Urine Ketones (NEGATIVE) mg/dL Urine Occult Blood (NEGATIVE) Urine Nitrite (NEGATIVE) Urine Bilirubin (NEGATIVE) Urine Urobilinogen (0.2-1.0) E.U./dL Ur Leukocyte Esterase (NEGATIVE) Urine RBC /HPF Urine WBC /HPF Ur Epithelial Cells /LPF Urine Bacteria (NONE TO FEW) /HPF Urine Mucus (NEGATIVE) /LPF 09/23/19 09/24/19 09/24/19 Range/Units 20:50 07:15 07:15 WBC (4.0-10.2) K/uL RBC (4.33-5.41) M/uL Hgb (13.1-16.8) g/dL Hct (39.0-49.0) % MCV (84.0-98.0) fL MCH (28.2-33.3) pg MCHC (31.7-36.0) g/dL RDW (11.2-14.1) % Plt Count (150-350) K/uL Neut % (Auto) (45.0-80.0) % Lymph % (Auto) (10.0-50.0) % Parker % (Auto) (2.0-14.0) % Eos % (Auto) (0.0-5.0) % Baso % (Auto) (0.0-2.0) % Neut # (Auto) (1.40-7.00) K/uL Lymph # (Auto) (0.50-3.50) K/uL Parker # (Auto) (0.00-1.00) K/uL Eos # (Auto) (0.00-0.50) K/uL Baso # (Auto) (0.00-0.20) K/uL Sodium 138 (136-145) mmol/L Potassium 4.4 (3.5-5.1) mmol/L Chloride 104 (98-107) mmol/L Carbon Dioxide 24.2 (21.0-32.0) mmol/L BUN 16 (7-18) mg/dL Creatinine 0.68 (0.51-1.17) mg/dL Est Cr Clr Drug Dosing TNP Estimated GFR (MDRD) > 60 mL/min Glucose 232 H (74-106) mg/dL POC Glucose (65-110) mg/dl Lactic Acid 1.3 (0.4-2.0) mmol/L Calcium 8.3 L (8.5-10.1) mg/dL Magnesium 2.3 (1.8-2.4) mg/dL Total Bilirubin 0.7 (0.2-1.0) mg/dL AST 23 (15-37) U/L ALT 64 (12-78) U/L Alkaline Phosphatase 73 (46-116) IU/L Total Protein 6.0 L (6.4-8.2) g/dL Albumin 3.2 L (3.4-5.0) g/dL TSH, Ultra Sensitive 2.654 (0.358-3.740) mIU/mL Specimen Type Urinqcath Urine Color Yellow Urine Appearance Clear Urine pH 5.0 (5.0-9.0) Ur Specific Elizabeth 1.025 (1.005-1.030) Urine Protein Negative (NEGATIVE) mg/dL Urine Glucose (UA) 500 H (NEGATIVE) mg/dL Urine Ketones Negative (NEGATIVE) mg/dL Urine Occult Blood Negative (NEGATIVE) Urine Nitrite Negative (NEGATIVE) Urine Bilirubin Negative (NEGATIVE) Urine Urobilinogen 0.2 (0.2-1.0) E.U./dL Ur Leukocyte Esterase Negative (NEGATIVE) Urine RBC 0-5 /HPF Urine WBC 0-5 /HPF Ur Epithelial Cells Few /LPF Urine Bacteria Rare (NONE TO FEW) /HPF Urine Mucus Few H (NEGATIVE) /LPF 09/24/19 09/24/19 Range/Units 07:15 11:53 WBC 11.9 H (4.0-10.2) K/uL RBC 3.96 L (4.33-5.41) M/uL Hgb 12.8 L (13.1-16.8) g/dL Hct 36.9 L (39.0-49.0) % MCV 93.2 (84.0-98.0) fL MCH 32.3 (28.2-33.3) pg MCHC 34.7 (31.7-36.0) g/dL RDW 13.1 (11.2-14.1) % Plt Count 158 (150-350) K/uL Neut % (Auto) 90.2 H (45.0-80.0) % Lymph % (Auto) 4.0 L (10.0-50.0) % Parker % (Auto) 5.7 (2.0-14.0) % Eos % (Auto) 0.0 (0.0-5.0) % Baso % (Auto) 0.1 (0.0-2.0) % Neut # (Auto) 10.73 H (1.40-7.00) K/uL Lymph # (Auto) 0.47 L (0.50-3.50) K/uL Parker # (Auto) 0.68 (0.00-1.00) K/uL Eos # (Auto) 0.00 (0.00-0.50) K/uL Baso # (Auto) 0.01 (0.00-0.20) K/uL Sodium (136-145) mmol/L Potassium (3.5-5.1) mmol/L Chloride (98-107) mmol/L Carbon Dioxide (21.0-32.0) mmol/L BUN (7-18) mg/dL Creatinine (0.51-1.17) mg/dL Est Cr Clr Drug Dosing Estimated GFR (MDRD) mL/min Glucose (74-106) mg/dL POC Glucose 293 H* (65-110) mg/dl Lactic Acid (0.4-2.0) mmol/L Calcium (8.5-10.1) mg/dL Magnesium (1.8-2.4) mg/dL Total Bilirubin (0.2-1.0) mg/dL AST (15-37) U/L ALT (12-78) U/L Alkaline Phosphatase (46-116) IU/L Total Protein (6.4-8.2) g/dL Albumin (3.4-5.0) g/dL TSH, Ultra Sensitive (0.358-3.740) mIU/mL Specimen Type Urine Color Urine Appearance Urine pH (5.0-9.0) Ur Specific Elizabeth (1.005-1.030) Urine Protein (NEGATIVE) mg/dL Urine Glucose (UA) (NEGATIVE) mg/dL Urine Ketones (NEGATIVE) mg/dL Urine Occult Blood (NEGATIVE) Urine Nitrite (NEGATIVE) Urine Bilirubin (NEGATIVE) Urine Urobilinogen (0.2-1.0) E.U./dL Ur Leukocyte Esterase (NEGATIVE) Urine RBC /HPF Urine WBC /HPF Ur Epithelial Cells /LPF Urine Bacteria (NONE TO FEW) /HPF Urine Mucus (NEGATIVE) /LPF Med Orders - Current: Current Medications Acetaminophen (Tylenol) 650 mg PO Q4H PRN PRN Reason: Fever Last Admin: 09/24/19 12:02 Dose: 650 mg Aspirin (Halfprin) 81 mg PO QPM [facility] Ceftriaxone Sodium (Rocephin) 1 gm IVPUSH Q24H [facility] Last Admin: 09/24/19 11:57 Dose: 1 gm Duloxetine HCl (Cymbalta) 60 mg PO QPM [place] Finasteride (Proscar) 5 mg PO QAM [facility] Last Admin: 09/24/19 08:59 Dose: 5 mg Sodium Chloride (Normal Saline) 1,000 mls @ 125 mls/hr IV ASDIRECTED [facility] Last Admin: 09/24/19 09:08 Dose: 125 mls/hr Insulin Human Lispro (Humalog) 0 unit SUBCUT QID@08,12,18,21 [facility]; Protocol Last Admin: 09/24/19 11:54 Dose: 3 units Levothyroxine Sodium (Levothyroxine) 25 mcg PO ACBREAKFAST [facility] Last Admin: 09/24/19 08:57 Dose: 25 mcg Metformin HCl (Glucophage Xr) 500 mg PO QAM [facility] Last Admin: 09/24/19 08:57 Dose: 500 mg Rosuvastatin Calcium (Crestor) [facility] [place] Last Admin: 09/24/19 08:57 Dose: 5 mg Tamsulosin HCl (Flomax) 0.8 mg PO Q[facility] [place] Last Admin: 09/24/19 08:57 Dose: 0.8 mg Temazepam (Restoril) 15 mg PO BEDTIME PRN PRN Reason: Sleep Discontinued Medications Sodium Chloride (Normal Saline) 1,000 mls @ 125 mls/hr IV ASDIRECTED [facility] Magnesium Sulfate/Dextrose 1 (gm/ Premix) 100 mls @ 100 mls/hr IV ONETIME ONE Stop: 09/23/19 22:53 Last Infusion: 09/24/19 00:56 Dose: Infused Magnesium Sulfate/Dextrose 1 (gm/ Premix) 100 mls @ 100 mls/hr IV ONETIME ONE Stop: 09/24/19 04:59 Last Admin: 09/24/19 04:45 Dose: 100 mls/hr Sodium Chloride (Normal Saline) 250 mls @ 250 mls/hr IV ONETIME ONE Stop: 09/23/19 23:05 Last Admin: 09/23/19 23:28 Dose: 250 mls/hr Potassium Chloride (Klor-Con M20) 40 meq PO ONETIME ONE Stop: 09/23/19 21:56 Last Admin: 09/23/19 22:27 Dose: 40 meq Potassium Chloride (Klor-Con M20) 20 meq PO ONETIME ONE Stop: 09/24/19 02:01 Potassium Chloride (Klor-Con M20) 40 meq PO ONETIME ONE Stop: 09/24/19 02:01 Last Admin: 09/24/19 02:58 Dose: 40 meq Potassium Chloride (Klor-Con M20) 40 meq PO ONETIME ONE Stop: 09/24/19 06:01 Last Admin: 09/24/19 04:59 Dose: 40 meq - Exam Quality Assessment: DVT Prophylaxis General: Alert, Oriented, Cooperative, No Acute Distress HEENT: Pupils Equal, Pupils Reactive, EOMI, Mucous Membr. Moist/[place], Other (No swelling around gums/face noted) Neck: Supple Lungs: Clear to Auscultation, Normal Respiratory Effort Cardiovascular: Regular Rate, Regular Rhythm GI/Abdominal Exam: Normal Bowel Sounds, Soft, Non-Tender, No Distention (Male) Exam: Deferred Back Exam: No: CVA Tenderness (L), CVA Tenderness (R), Muscle Spasm Extremities: Normal Inspection, Non-Tender, Normal Capillary Refill Skin: Warm, Dry Neurological: No New Focal Deficit Psy/Mental Status: Alert, Normal Affect, Normal Mood Sepsis Event Note - Evaluation Sepsis Screening Result: No Definite Risk - Focused Exam Vital Signs: Vital Signs Temp Temp Pulse Resp BP Pulse Ox 09/24/19 12:04 36.8 C 74 18 118/57 L 100 09/24/19 09:45 36.7 C 09/24/19 09:00 37.7 C 80 18 108/53 L 97 09/24/19 04:42 36.9 C 71 20 124/78 97 09/24/19 02:46 36.9 C Date Exam was Performed: 09/24/19 Time Exam was Performed: 12:40 - Problem List & Annotations (1) Fever SNOMED Code(s): 302300327 Code(s): R50.9 - FEVER, UNSPECIFIED Status: Acute Priority: High Current Visit: Yes Qualifiers: Fever type: unspecified Qualified Code(s): R50.9 - Fever, unspecified Annotation/Comment:: Low grade fever/confusion/shaking chills at home. Has had issues with sore tooth in lower right jaw. No obvious respiratory/GI changes. Lactic acid/AST/ALT elevated yesterday but improved today after IV fluids. Covid testing pending. Blood cultures pending. Empiric Rocephin coverage initiated. Continue to observe for changes. Confusion resolved. No fever noted today. (2) Hypomagnesemia SNOMED Code(s): 300330967 Code(s): E83.42 - HYPOMAGNESEMIA Status: Acute Priority: High Current Visit: Yes Annotation/Comment:: Admitted observation and received IV supplementation. Level normalized today. Recheck again tomorrow (3) Hypokalemia SNOMED Code(s): 12288597 Code(s): E87.6 - HYPOKALEMIA Status: Acute Priority: Medium Current Visit: Yes Annotation/Comment:: Oral replacement initiated. Normalized today. Recheck tomorrow. (4) Elevated lactic acid level SNOMED Code(s): 2813694 Code(s): R79.89 - OTHER SPECIFIED ABNORMAL FINDINGS OF BLOOD CHEMISTRY Status: Acute Current Visit: Yes Annotation/Comment:: Normalized today. (5) Elevated LFTs SNOMED Code(s): 082958596, 408869889 Code(s): R79.89 - OTHER SPECIFIED ABNORMAL FINDINGS OF BLOOD CHEMISTRY Status: Acute Priority: Medium Current Visit: Yes Annotation/Comment:: AST and ALT elevated in ER. May be secondary to viral infection. Normalized today after IV fluids. (6) Osteoarthritis SNOMED Code(s): 133162543 Code(s): M19.90 - UNSPECIFIED OSTEOARTHRITIS, UNSPECIFIED SITE Status: Chronic Priority: Low Current Visit: No Qualifiers: Osteoarthritis location: multiple joints Osteoarthritis type: primary Annotation/Comment:: Stable by patient history. (7) Sleep apnea SNOMED Code(s): 95965722 Code(s): G47.30 - SLEEP APNEA, UNSPECIFIED Status: Chronic Priority: Low Current Visit: No Qualifiers: Sleep apnea type: unspecified type Qualified Code(s): G47.30 - Sleep apnea , unspecified Annotation/Comment:: He was congratulated about his compliance with his CPAP. No recent fever or bronchitic type symptoms. (8) Mixed anxiety depressive disorder SNOMED Code(s): 192566129 Code(s): F41.8 - OTHER SPECIFIED ANXIETY DISORDERS Status: Chronic Priority: Low Current Visit: No Annotation/Comment:: Stable by patient history (9) Hypertension SNOMED Code(s): 31730682 Code(s): I10 - ESSENTIAL (PRIMARY) HYPERTENSION Status: Chronic Priority : Medium Current Visit: No Qualifiers: Hypertension type: essential hypertension Qualified Code(s): I10 - Essential (primary) hypertension Annotation/Comment:: Monitor BP trends (10) Dyslipidemia SNOMED Code(s): 291090877 Code(s): E78.5 - HYPERLIPIDEMIA, UNSPECIFIED Status: Chronic Priority: Medium Current Visit: No Annotation/Comment:: Under therapy (11) Hypothyroidism (acquired) SNOMED Code(s): 581873872 Code(s): E03.9 - HYPOTHYROIDISM, UNSPECIFIED Status: Chronic Priority: Medium Current Visit: No Annotation/Comment:: Currently under therapy - Problem List Review Problem List Initiated/Reviewed/Updated: Yes - My Orders Last 24 Hours: My Active Orders 09/23/19 20:09 Chest 2V [CR] Stat 09/23/19 20:13 Blood Culture x2 Reflex Set [OM.PC] Stat 09/23/19 20:25 CULTURE BLOOD [BC] Stat 09/23/19 20:30 CULTURE BLOOD [BC] Stat 09/23/19 20:50 CORONAVIRUS COVID-19 PCR PHL Stat 09/23/19 21:49 Patient Status [ADT] Routine Ambulate [RC] ASDIRECTED Blood Glucose Check, Bedside [RC] QIDACANDBED Height and Weight [RC] UPON May Shower [RC] ASDIRECTED Oxygen Therapy [RC] PRN Up With Assistance [RC] ASDIRECTED VTE/DVT Education [RC] PER UNIT ROUTINE Vital Signs [RC] Q4H Temazepam [Restoril] 15 mg PO BEDTIME PRN Resuscitation Status Routine 09/23/19 21:51 Pulse Oximetry [RC] PRN Antiembolic Hose [OM.PC] Per Unit Routine 09/23/19 21:52 Antiembolic Devices [RC] 09/23/19 22:37 Acetaminophen [Tylenol] 650 mg PO Q4H PRN 09/23/19 23:00 Sodium Chloride 0.9% [Normal Saline] 1,000 ml IV ASDIRECTED 09/24/19 07:30 Levothyroxine 25 mcg PO ACBREAKFAST 09/24/19 08:00 Finasteride [Proscar] 5 mg PO QAM Rosuvastatin [Crestor] 5 mg PO QAM Tamsulosin [Flomax] 0.8 mg PO QAM metFORMIN [Glucophage XR] 500 mg PO QAM 09/24/19 12:00 Insulin Lispro [HumaLOG] See Protocol SUBCUT QID@08,12,, cefTRIAXone [Rocephin] 1 gm IVPUSH Q24H 09/24/19 18:00 Aspirin [Halfprin] 81 mg PO QPM DULoxetine [Cymbalta] 60 mg PO QPM 09/24/19 Breakfast [employer] Diet [DIET] - Assessment Assessment:: as above. - Plan Plan:: Continue to observe an additional 24 hours to see if patient redevelops fever/ confusion or any new symptoms. If continues to do well, will plan to discharge patient home tomorrow after morning dose of Rocephin with close follow up by primary provider.
[2019-09-24] MEDS ORDERED: Aspirin 81 MG Tab.EC PO SCH (18:00)
[2019-09-24] MEDS ORDERED: DULoxetine 30 MG Cap PO SCH (18:00)
[2019-09-24 21:25] VITALS: PULSE 65
[2019-09-25] MEDS: Sodium Chloride 0.9% 1,000 ML IV SCH (05:53)
[2019-09-25] MEDS: Acetaminophen 325 MG Tab PO PRN ×2 (05:58→12:14)
[2019-09-25 07:41] LABS: CHLORIDE,CL 107 mmol/L (98-107); SODIUM,NA 138 mmol/L (136-145)
[2019-09-25] MEDS: Levothyroxine 25 MCG Tab PO SCH (08:44)
[2019-09-25] MEDS: Finasteride 5 MG Tab PO SCH (08:45)
[2019-09-25] MEDS: metFORMIN 500 MG Tab.ER PO SCH (08:45)
[2019-09-25] MEDS: Tamsulosin 0.4 MG Cap.ER PO SCH (08:46)
[2019-09-25] MEDS: Rosuvastatin 10 MG Tab PO SCH (08:46)
[2019-09-25] MEDS: Insulin Lispro 100 Units/ML 3 ML Vial SUBCUT SCH ×2 (08:48→12:10)
[2019-09-25] MEDS: cefTRIAXone 1 GM Vial IVPUSH SCH (12:06)
[2019-09-25 12:25] VITALS: BP 111/51
--- NOTE | 2019-09-25 13:17 | PCM.DCSUM1 ---
Discharge Summary - Hospital Course Brief History: Patient admitted observation after having fever/chills and confusion. Diagnosis: Stroke: No - Discharge Data Discharge Date: 09/25/19 Discharge Disposition: Home, Self-Care 01 Condition: Good - Referral to Home Health Primary Care Physician: Tawanna Oemr PA-C - Discharge Diagnosis/Problem(s) (1) Tooth abscess SNOMED Code(s): 125415635 ICD Code: K04.7 - PERIAPICAL ABSCESS WITHOUT SINUS Status: Acute Priority : High Current Visit: Yes Problem Details: Patient noted to hava increased swelling right lower jaw today. Has several teeth with caries in this area and reports intermittent pain issues that have been present for several months. Has been treated with course antibiotics last month for same issue. Unable to see dentist due to Covid issues and fact that he owes money to dentist already. Suspect possible link between developing dental infection and patient's recent fever/chills episode. Will discharge home on oral antibiotics with instructions to follow up with dentist STEVE for definitive care. (2) Fever SNOMED Code(s): 280354028 ICD Code: R50.9 - FEVER, UNSPECIFIED Status: Acute Priority: High Current Visit: Yes Problem Details: Low grade fever/confusion/shaking chills at home. Has had issues with sore tooth in lower right jaw. No obvious respiratory/GI changes. Lactic acid/AST/ALT elevated in ER but improved yesterday after IV fluids. Covid testing pending. Blood cultures pending but so far no growth. Empiric Rocephin coverage initiated. Confusion resolved after admission to observation. No fever noted today/yesterday. Qualifiers: Fever type: unspecified Qualified Code(s): R50.9 - Fever, unspecified (3) Hypomagnesemia SNOMED Code(s): 297187560 ICD Code: E83.42 - HYPOMAGNESEMIA Status: Acute Priority: High Current Visit: Yes Problem Details: Admitted observation and received IV supplementation. Level normalized yesterday. Low again today. Additional dose IV Mag prior to discharge. To continue oral supplementation at home and get level routinely monitored by primary provider. (4) Hypokalemia SNOMED Code(s): 98673969 ICD Code: E87.6 - HYPOKALEMIA Status: Acute Priority: Medium Current Visit: Yes Problem Details: Oral replacement initiated. Normalized. (5) Elevated lactic acid level SNOMED Code(s): 2592502 ICD Code: R79.89 - OTHER SPECIFIED ABNORMAL FINDINGS OF BLOOD CHEMISTRY Status: Acute Current Visit: Yes Problem Details: Normalized since yesterday (6) Elevated LFTs SNOMED Code(s): 310391961, 942096551 ICD Code: R79.89 - OTHER SPECIFIED ABNORMAL FINDINGS OF BLOOD CHEMISTRY Status: Acute Priority: Medium Current Visit: Yes Problem Details: AST and ALT elevated in ER. May be secondary to viral infection however patient reports that he has had on and off elevations "for years". Normal yesterday, elevated again today. Hepatitis panel added. Close follow up with primary provider recommended. (7) Osteoarthritis SNOMED Code(s): 066263560 ICD Code: M19.90 - UNSPECIFIED OSTEOARTHRITIS, UNSPECIFIED SITE Status: Chronic Priority: Low Current Visit: No Problem Details: Stable by patient history. Qualifiers: Osteoarthritis location: multiple joints Osteoarthritis type: primary Qualified Code(s): M89.49 - Other hypertrophic osteoarthropathy, multiple sites (8) Sleep apnea SNOMED Code(s): 28851145 ICD Code: G47.30 - SLEEP APNEA, UNSPECIFIED Status: Chronic Priority: Low Current Visit: No Problem Details: He was congratulated about his compliance with his CPAP. No recent fever or bronchitic type symptoms. Qualifiers: Sleep apnea type: unspecified type Qualified Code(s): G47.30 - Sleep apnea , unspecified (9) Mixed anxiety depressive disorder SNOMED Code(s): 051862232 ICD Code: F41.8 - OTHER SPECIFIED ANXIETY DISORDERS Status: Chronic Priority: Low Current Visit: No Problem Details: Stable by patient history (10) Hypertension SNOMED Code(s): 50154086 ICD Code: I10 - ESSENTIAL (PRIMARY) HYPERTENSION Status: Chronic Priority : Medium Current Visit: No Problem Details: Monitor BP trends Qualifiers: Hypertension type: essential hypertension Qualified Code(s): I10 - Essential (primary) hypertension (11) Dyslipidemia SNOMED Code(s): 578068711 ICD Code: E78.5 - HYPERLIPIDEMIA, UNSPECIFIED Status: Chronic Priority: Medium Current Visit: No Problem Details: Under therapy (12) Hypothyroidism (acquired) SNOMED Code(s): 972518073 ICD Code: E03.9 - HYPOTHYROIDISM, UNSPECIFIED Status: Chronic Priority: Medium Current Visit: No Problem Details: Currently under therapy - Patient Summary/Data Hospital Course: No further confusion observed after patient admitted to observation from ER. Did have some fevers the first 24 hours but these resolved. Rocephin added for empiric coverage given the fever/confusion. Lactic acid elevation corrected by second day. Had brief elevation of WBC yesterday but that resolved as of today. Vital signs stable. Patient reported issues with tooth pain yesterday and said that he has been having chronic intermittent pain in this tooth. Noted to develop swelling in this area over the last 24 hours. Dental infection may have been developing at the time patient was evaluated in ER, however no complaints of tooth pain/gum swelling at that time. Unable to pinpoint and firmly identify cause of presenting symptoms at time of discharge home. Cannot rule out possible viral illness. Covid testing pending. Will continue oral antibiotic coverage for dental infection and have patient follow up this week with his primary provider and dentist steve. - Patient Instructions Diet: Usual Diet as Tolerated Notify Provider of: Fever, Increased Pain, Swelling and Redness Other/Special Instructions: Follow up with Gabriela at [facility] at 10am. Hopefully your Covid test will be back by then. Discuss with her how you are not happy with the Victoza and would like to consider changing your diabetes medication. You have very low Magnesium and will need to start a supplement. Take 400-500mg daily and get your Mag level rechecked at clinic in 2-4 weeks. Adjust Mag dose as needed to keep it within normal range. Do not take Mag within 2 hours of Thyroid medication. Take Clindamycin for your tooth every 6 hours. YOu have a one week prescription. Call your dentist and see if you can get evaluated, ideally as soon as possible. You may need that tooth pulled. Follow up otherwise as needed for problems/concerns, especially if the fever returns/swelling worsens/confusion returns. Continue to recheck you liver function tests with Gabriela to see if they return to normal levels. We did order a hepatitis panel today to make certain that was not contributing to the problems. - Discharge Plan *PRESCRIPTION DRUG MONITORING PROGRAM REVIEWED*: Not Applicable *COPY OF PRESCRIPTION DRUG MONITORING REPORT IN PATIENT CHANG: Not Applicable Prescriptions/Med Rec: Clindamycin HCl 300 mg PO Q6HR #28 capsule Magnesium Oxide 500 mg PO DAILY #30 capsule Home Medications: Home Meds Aspirin [Adult Low Dose Aspirin EC] 81 mg PO QPM 10/07/16 [History] DULoxetine [Cymbalta] 60 mg PO QPM 10/07/16 [History] Levothyroxine 25 mcg PO QAM 10/07/16 [History] Tamsulosin [Flomax] 2 cap PO QAM 08/30/17 [History] Biotin 10 mg PO QAM 09/23/19 [History] Calcium Carbonate/Vitamin D3 [Calcium 600 + Vit D Tablet] 1 tab PO BID 09/23/19 [History] Finasteride 5 mg PO QAM 09/23/19 [History] Liraglutide [Victoza] 0.6 mg SUBCUT BEDTIME 09/23/19 [History] Multivit-Min/Iron/Folic Acid/K [Bariatric Mv-Iron 45 mg Cap] 1 each PO DAILY [History] Potassium Gluconate 99 mg PO QAM 09/23/19 [History] Rosuvastatin [Crestor] 5 mg PO QAM 09/23/19 [History] Vit D3 & K/Berberine HCl/Hops [Ostera] 25 mg PO QAM 09/23/19 [History] metFORMIN HCl [Metformin ER Gastric] 500 mg PO QAM 09/23/19 [History] Clindamycin HCl 300 mg PO Q6HR #28 capsule 09/25/19 [Rx] Magnesium Oxide 500 mg PO DAILY #30 capsule 09/25/19 [Rx] Patient Handouts: Hypomagnesemia Forms: ED Department Discharge Referrals: Tawanna Omer PA-C [Primary Care Provider] - - Discharge Summary/Plan Comment DC Time >30 min.: No - General Info Date of Service: 09/25/19 Admission Dx/Problem (Free Text: Patient admitted for further evaluation and treatment of low magnesium, low K, and episode of confusion/shaking chills/fever Subjective Update: Patient reports swelling now of area around sore tooth right lower jaw. Pain improves with Tylenol. Otherwise feels fine and wants to go home. Functional Status: Reports: Pain Controlled, Tolerating Diet, Ambulating, Urinating - Review of Systems General: Reports: No Symptoms HEENT: Reports: Other (tooth pain). Denies: Ear Pain, Headaches, Sore Throat, Rhinitis, Visual Changes Pulmonary: Reports: No Symptoms Cardiovascular: Reports: No Symptoms Gastrointestinal: Reports: Other (loose stools today). Denies: Abdominal Pain, Constipation, Decreased Appetite, Difficulty Swallowing, Hematochezia, Nausea, Vomiting Genitourinary: Reports: No Symptoms Musculoskeletal: Reports: Other (no acute changes from baseline) Skin: Reports: No Symptoms Neurological: Reports: No Symptoms - Patient Data Vitals - Most Recent: Last Vital Signs Temp 36.9 C 09/25/19 12:00 Pulse 65 09/25/19 12:00 Resp 18 09/25/19 12:00 BP 111/51 L 09/25/19 12:00 Pulse Ox 96 09/24/19 21:00 Weight - Most Recent: 73.663 kg I&O - Last 24 hours: Intake & Output 09/24/19 09/25/19 09/25/19 22:59 06:59 14:59 Intake Total 2185 958 Balance 2185 958 Lab Results - Last 24 hrs: Laboratory Results - last 24 hr 09/24/19 09/24/19 09/25/19 Range/Units 17:30 20:34 07:16 WBC (4.0-10.2) K/uL RBC (4.33-5.41) M/uL Hgb (13.1-16.8) g/dL Hct (39.0-49.0) % MCV (84.0-98.0) fL MCH (28.2-33.3) pg MCHC (31.7-36.0) g/dL RDW (11.2-14.1) % Plt Count (150-350) K/uL Neut % (Auto) (45.0-80.0) % Lymph % (Auto) (10.0-50.0) % [place] % (Auto) (2.0-14.0) % Eos % (Auto) (0.0-5.0) % Baso % (Auto) (0.0-2.0) % Neut # (Auto) (1.40-7.00) K/uL Lymph # (Auto) (0.50-3.50) K/uL [place] # (Auto) (0.00-1.00) K/uL Eos # (Auto) (0.00-0.50) K/uL Baso # (Auto) (0.00-0.20) K/uL Sodium 138 (136-145) mmol/L Potassium 3.9 (3.5-5.1) mmol/L Chloride 107 (98-107) mmol/L Carbon Dioxide 19.9 L (21.0-32.0) mmol/L BUN 12 (7-18) mg/dL Creatinine 0.50 L (0.51-1.17) mg/dL Est Cr Clr Drug Dosing TNP Estimated GFR (MDRD) > 60 mL/min Glucose 175 H (74-106) mg/dL POC Glucose 260 H* 273 H* (65-110) mg/dl Lactic Acid (0.4-2.0) mmol/L Calcium 7.8 L (8.5-10.1) mg/dL Magnesium 1.7 L (1.8-2.4) mg/dL Total Bilirubin 0.5 (0.2-1.0) mg/dL AST 90 H (15-37) U/L ALT 134 H (12-78) U/L Alkaline Phosphatase 74 (46-116) IU/L Total Protein 5.3 L (6.4-8.2) g/dL Albumin 2.7 L (3.4-5.0) g/dL 09/25/19 09/25/19 09/25/19 Range/Units 07:16 07:16 11:56 WBC 6.2 (4.0-10.2) K/uL RBC 3.79 L (4.33-5.41) M/uL Hgb 12.1 L (13.1-16.8) g/dL Hct 35.6 L (39.0-49.0) % MCV 93.9 (84.0-98.0) fL MCH 31.9 (28.2-33.3) pg MCHC 34.0 (31.7-36.0) g/dL RDW 13.4 (11.2-14.1) % Plt Count 127 L (150-350) K/uL Neut % (Auto) 77.3 (45.0-80.0) % Lymph % (Auto) 12.7 (10.0-50.0) % [place] % (Auto) 9.3 (2.0-14.0) % Eos % (Auto) 0.5 (0.0-5.0) % Baso % (Auto) 0.2 (0.0-2.0) % Neut # (Auto) 4.83 (1.40-7.00) K/uL Lymph # (Auto) 0.79 (0.50-3.50) K/uL [place] # (Auto) 0.58 (0.00-1.00) K/uL Eos # (Auto) 0.03 (0.00-0.50) K/uL Baso # (Auto) 0.01 (0.00-0.20) K/uL Sodium (136-145) mmol/L Potassium (3.5-5.1) mmol/L Chloride (98-107) mmol/L Carbon Dioxide (21.0-32.0) mmol/L BUN (7-18) mg/dL Creatinine (0.51-1.17) mg/dL Est Cr Clr Drug Dosing Estimated GFR (MDRD) mL/min Glucose (74-106) mg/dL POC Glucose 225 H (65-110) mg/dl Lactic Acid 0.8 (0.4-2.0) mmol/L Calcium (8.5-10.1) mg/dL Magnesium (1.8-2.4) mg/dL Total Bilirubin (0.2-1.0) mg/dL AST (15-37) U/L ALT (12-78) U/L Alkaline Phosphatase (46-116) IU/L Total Protein (6.4-8.2) g/dL Albumin (3.4-5.0) g/dL PEDRO Results - Last 24 hrs: Microbiology 09/23/19 20:25 Aerobic Blood Culture - Preliminary Blood - Venous NO GROWTH AFTER 1 DAY Anaerobic Blood Culture - Preliminary NO GROWTH AFTER 1 DAY 09/23/19 20:30 Aerobic Blood Culture - Preliminary Blood - Venous - Lab Draw NO GROWTH AFTER 1 DAY Anaerobic Blood Culture - Preliminary NO GROWTH AFTER 1 DAY Med Orders - Current: Current Medications Acetaminophen (Tylenol) 650 mg PO Q4H PRN PRN Reason: Fever Last Admin: 09/25/19 12:14 Dose: 650 mg Aspirin (Halfprin) 81 mg PO QPM TAWANNA Last Admin: 09/24/19 17:35 Dose: 81 mg Ceftriaxone Sodium (Rocephin) 1 gm IVPUSH Q24H TAWANNA Last Admin: 09/25/19 12:06 Dose: 1 gm Duloxetine HCl (Cymbalta) 60 mg PO QPM [facility] Last Admin: 09/24/19 17:34 Dose: 60 mg Finasteride (Proscar) 5 mg PO QAM [facility] Last Admin: 09/25/19 08:45 Dose: 5 mg Sodium Chloride (Normal Saline) 1,000 mls @ 50 mls/hr IV ASDIRECTED [facility] Last Admin: 09/25/19 05:53 Dose: 125 mls/hr Magnesium Sulfate/Dextrose 1 (gm/ Premix) 100 mls @ 100 mls/hr IV ONETIME ONE Stop: 09/25/19 13:44 Insulin Human Lispro (Humalog) 0 unit SUBCUT QID@08,12,18,21 [facility]; Protocol Last Admin: 09/25/19 12:10 Dose: 2 units Levothyroxine Sodium (Levothyroxine) 25 mcg PO ACBREAKFAST [facility] Last Admin: 09/25/19 08:44 Dose: 25 mcg Metformin HCl (Glucophage Xr) 500 mg PO [facility] Last Admin: 09/25/19 08:45 Dose: 500 mg Rosuvastatin Calcium (Crestor) 5 mg PO [facility] Last Admin: 09/25/19 08:46 Dose: 5 mg Tamsulosin HCl (Flomax) 0.8 mg PO [facility] Last Admin: 09/25/19 08:46 Dose: 0.8 mg Temazepam (Restoril) 15 mg PO BEDTIME PRN PRN Reason: Sleep Discontinued Medications Sodium Chloride (Normal Saline) 1,000 mls @ 125 mls/hr IV ASDIRECTED [facility] Magnesium Sulfate/Dextrose 1 (gm/ Premix) 100 mls @ 100 mls/hr IV ONETIME ONE Stop: 09/23/19 22:53 Last Infusion: 09/24/19 00:56 Dose: Infused Magnesium Sulfate/Dextrose 1 (gm/ Premix) 100 mls @ 100 mls/hr IV ONETIME ONE Stop: 09/24/19 04:59 Last Admin: 09/24/19 04:45 Dose: 100 mls/hr Sodium Chloride (Normal Saline) 250 mls @ 250 mls/hr IV ONETIME ONE Stop: 09/23/19 23:05 Last Admin: 09/23/19 23:28 Dose: 250 mls/hr Potassium Chloride (Klor-Con M20) 40 meq PO ONETIME ONE Stop: 09/23/19 21:56 Last Admin: 09/23/19 22:27 Dose: 40 meq Potassium Chloride (Klor-Con M20) 20 meq PO ONETIME ONE Stop: 09/24/19 02:01 Potassium Chloride (Klor-Con M20) 40 meq PO ONETIME ONE Stop: 09/24/19 02:01 Last Admin: 09/24/19 02:58 Dose: 40 meq Potassium Chloride (Klor-Con M20) 40 meq PO ONETIME ONE Stop: 09/24/19 06:01 Last Admin: 09/24/19 04:59 Dose: 40 meq - Exam General: Reports: Alert, Oriented, Cooperative, No Acute Distress HEENT: Reports: Pupils Equal, Pupils Reactive, EOMI, Mucous Membr. Moist/[place], Other (attempted to look at patient's tooth however patient not cooperative and barely opened mouth. He does have poor dentition and has darkened tooth/ erroded in right lower jaw. Unable to assess well for gum swelling as patient not cooperative. Unable to palpate lower jawline due to same reason. No obvious lymphnode enlargement in neck. ) Neck: Reports: Supple Lungs: Reports: Clear to Auscultation, Normal Respiratory Effort Cardiovascular: Reports: Regular Rate, Regular Rhythm GI/Abdominal Exam: Normal Bowel Sounds, Soft, Non-Tender, No Distention (Male) Exam: Deferred Rectal (Males) Exam: Deferred Back Exam: Denies: CVA Tenderness (L), CVA Tenderness (R), Muscle Spasm Extremities: Normal Range of Motion, Non-Tender, Normal Capillary Refill Skin: Reports: Warm, Dry Neurological: Reports: No New Focal Deficit Psy/Mental Status: Reports: Alert, Normal Affect, Normal Mood
== END 2019-09-25 14:50 | disposition home or self-care (01) ==
LOC: LL.ED 19:43 → LL.MS 21:30 → UNDOADMOB 21:30 → LL.MS 21:49
PROVIDERS: ADMIT Emergency Medicine; ATTEND Emergency Medicine
DX: K04.7 Periapical abscess without sinus (principal); E83.42 Hypomagnesemia; E87.6 Hypokalemia; R79.89 Other specified abnormal findings of blood chemistry; E78.00 Pure hypercholesterolemia, unspecified; I10 Essential (primary) hypertension; E78.5 Hyperlipidemia, unspecified; E11.9 Type 2 diabetes mellitus without complications; E03.9 Hypothyroidism, unspecified; E66.9 Obesity, unspecified; M89.49 Other hypertrophic osteoarthropathy, multiple sites; F41.8 Other specified anxiety disorders; G47.30 Sleep apnea, unspecified; Z20.828 Contact with and (suspected) exposure to other viral communicable diseases; Z79.82 Long term (current) use of aspirin; Z99.11 Dependence on respirator [ventilator] status; Z79.890 Hormone replacement therapy; Z79.899 Other long term (current) drug therapy; Z79.84 Long term (current) use of oral hypoglycemic drugs; Z68.24 Body mass index [BMI] 24.0-24.9, adult
CPT/HCPCS: 36415; 71046; 80053; 80074; 81001; 82962; 83605; 83735; 84443; 85025; 87040; 87075; 96361; 96365; 96366; 96375; 96376; 99285-25; A9270-GY; G0378; J0696; J1815-GY; J3475; J7030; J7050; U0002

== ENCOUNTER 2019-11-06 17:02 | Emergency (ER) | payer MEDICARE, BC ==
[2019-11-06] MEDS: Sodium Chloride 0.9% 1,000 ML IV ONE (17:15)
[2019-11-06 17:31] VITALS: BP 123/52; PULSE 60
[2019-11-06 17:43] LABS: CHLORIDE,CL 103 mmol/L (98-107); SODIUM,NA 139 mmol/L (136-145)
--- NOTE | 2019-11-06 18:08 | EDM.PDOC ---
ED HPI GENERAL MEDICAL PROBLEM - General Chief Complaint: Gastrointestinal Problem Stated Complaint: abdominal pain, vomiting, diarrhea Time Seen by Provider: 11/06/19 17:10 Source of Information: Reports: Patient - History of Present Illness Onset: Gradual Duration: Day(s): Location: Reports: Abdomen Quality: Reports: Ache Severity: Moderate Associated Symptoms: Reports: Nausea/Vomiting, Other (Diarrhea) Abdomen Pain Score (Numeric/FACES): 4 - Related Data Allergies Allergy/AdvReac Type Severity Reaction Status Date / Time No Known Allergies Allergy Verified 11/06/19 17:35 Home Meds: Home Meds Aspirin [Adult Low Dose Aspirin EC] 81 mg PO QPM 10/07/16 [History] DULoxetine [Cymbalta] 60 mg PO QPM 10/07/16 [History] Levothyroxine 25 mcg PO QAM 10/07/16 [History] Tamsulosin [Flomax] 2 cap PO QAM 08/30/17 [History] Biotin 10 mg PO QAM 09/23/19 [History] Finasteride 5 mg PO QAM 09/23/19 [History] Multivit-Min/Iron/Folic Acid/K [Bariatric Mv-Iron 45 mg Cap] 1 each PO DAILY 09/23/19 [History] Potassium Gluconate 2.5 meq PO QAM 09/23/19 [History] Rosuvastatin [Crestor] 5 mg PO QAM 09/23/19 [History] metFORMIN HCl [Metformin ER Gastric] 500 mg PO QAM 09/23/19 [History] Cyclobenzaprine [Flexeril] 10 mg PO TID PRN 11/06/19 [History] Insulin Aspart [NovoLOG] 4 - 6 units SQ TID 11/06/19 [History] Insulin Detemir [Levemir] 17 units SQ BEDTIME 11/06/19 [History] Past Medical History HEENT History: Reports: Cataract, Hard of Hearing, Other (See Below) Other HEENT History: Bilateral presbycusismild. Mild bilateral tinnitus Cardiovascular History: Reports: CAD, High Cholesterol, Hypertension, Syncope, Other (See Below) Other Cardiovascular History: Near syncopal episode on 09/15/08. Dyslipidemia. Borderline inferior wall cardiac ischemia by Cardiolite scan in 2005 with negative subsequent heart catheterization as below. Respiratory History: Reports: Intubation, Previous, Sleep Apnea Other Respiratory History: Patient compliant with CPAP. Gastrointestinal History: Reports: Colon Polyp, Other (See Below) Other Gastrointestinal History: Previous history of unknown type of colonic polyps Genitourinary History: Reports: BPH, Urinary Incontinence, Other (See Below) Other Genitourinary History: Erectile dysfunction Musculoskeletal History: Reports: Arthritis, Back Pain, Chronic, Fracture, Neck Pain, Chronic, Osteoarthritis, Osteoporosis, Other (See Below) Other Musculoskeletal History: Middle phalangeal fracture of digit #4 of the left hand requiring surgery as below in 2017 Neurological History: Reports: Concussion, Head Trauma, Other (See Below) Other Neuro History: Possible head concussion in January 2017 with no physician evaluation Psychiatric History: Reports: Addiction, Anxiety, Depression, Psych Hospitalization(s), Other (See Below) Other Psychiatric History: 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 Endocrine/Metabolic History: Reports: Diabetes, Type II, Hypothyroidism, IDDM, Obesity/BMI 30+, Osteopenia, Other (See Below) Other Endocrine/Metabolic History: Obesity with previous gastric bypass Hematologic History: Reports: Anemia, B12 Deficiency Immunologic History: Reports: None Oncologic (Cancer) History: Reports: None Dermatologic History: Reports: None - Infectious Disease History Infectious Disease History: Reports: Chicken Pox, Measles, Mumps, Shingles - Past Surgical History Head Surgeries/Procedures: Reports: None HEENT Surgical History: Reports: Cataract Surgery, Oral Surgery, Other (See Below) Other HEENT Surgeries/Procedures: Bilateral cataract surgery 2007. Tooth extractions. Cardiovascular Surgical History: Reports: None Respiratory Surgical History: Reports: None GI Surgical History: Reports: Bariatric Procedure, Colonoscopy, Polypectomy, Other (See Below) Other GI Surgeries/Procedures: Last colonoscopy in about 2009 with previous history of polypectomy. Gastric bypass surgery in August 2013. Male Surgical History: Reports: Circumcision, Other (See Below) Other Male Surgeries/Procedures: Circumcision as an . Penile implant in about 2004. Endocrine Surgical History: Reports: None Musculoskeletal Surgical History: Reports: ORIF, Other (See Below) Other Musculoskeletal Surgeries/Procedures:: ORIF of middle phalangeal fracture of digit #4 of the left hand in 2016 Oncologic Surgical History: Reports: None Dermatological Surgical History: Reports: None - Past Imaging History Past Imaging History: Reports: Angiography (2005), CAT Scan (CT of the sinuses on 06/15/16), DEXA Scan (10/28/10), Sleep Study (09/29/05), Stress Testing (Cardiolite stress test on 07/08/05 with findings as above with ejection fraction of 71%), Ultrasound (Scrotal ultrasound on 11/18/12. 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64) ED ROS GENERAL - Review of Systems Review Of Systems: See Below Constitutional: Reports: No Symptoms Respiratory: Reports: No Symptoms Cardiovascular: Reports: No Symptoms GI/Abdominal: Reports: Diarrhea, Nausea, Vomiting ED EXAM, GI/ABD - Physical Exam Exam: See Below Exam Limited By: No Limitations General Appearance: Alert, No Apparent Distress Throat/Mouth: Normal Inspection Neck: Supple Respiratory/Chest: Lungs Clear Cardiovascular: Regular Rate, Rhythm GI/Abdominal Exam: Tender Course - Vital Signs Last Recorded V/S: Last Vital Signs Temp 97.8 F 11/06/19 17:28 Pulse 60 11/06/19 17:28 Resp 16 11/06/19 17:28 BP 123/52 L 11/06/19 17:28 Pulse Ox 97 11/06/19 17:28 - Orders/Labs/Meds Orders: Active Orders 24 hr Category Date Time Status Sodium Chloride 0.9% [Normal Saline] 1,000 ml Med 11/06/19 17:10 Active IV .BOLUS Medication Orders Sodium Chloride (Normal Saline) 1,000 mls @ 1,000 mls/hr IV .BOLUS ONE Stop: 11/06/19 18:09 Labs: Laboratory Tests 11/06/19 11/06/19 Range/Units 17:20 17:20 WBC 11.3 H (4.0-10.2) K/uL RBC 4.60 (4.33-5.41) M/uL Hgb 14.9 D (13.1-16.8) g/dL Hct 43.7 (39.0-49.0) % MCV 95.0 (84.0-98.0) fL MCH 32.4 (28.2-33.3) pg MCHC 34.1 (31.7-36.0) g/dL RDW 12.8 (11.2-14.1) % Plt Count 249 D (150-350) K/uL Neut % (Auto) 82.7 H (45.0-80.0) % Lymph % (Auto) 9.7 L (10.0-50.0) % [place] % (Auto) 7.1 (2.0-14.0) % Eos % (Auto) 0.3 (0.0-5.0) % Baso % (Auto) 0.2 (0.0-2.0) % Neut # (Auto) 9.35 H (1.40-7.00) K/uL Lymph # (Auto) 1.10 (0.50-3.50) K/uL [place] # (Auto) 0.80 (0.00-1.00) K/uL Eos # (Auto) 0.03 (0.00-0.50) K/uL Baso # (Auto) 0.02 (0.00-0.20) K/uL Sodium 139 (136-145) mmol/L Potassium 3.9 (3.5-5.1) mmol/L Chloride 103 (98-107) mmol/L Carbon Dioxide 25.1 (21.0-32.0) mmol/L BUN 27 H (7-18) mg/dL Creatinine 0.62 (0.51-1.17) mg/dL Est Cr Clr Drug Dosing TNP Estimated GFR (MDRD) > 60 mL/min Glucose 192 H (74-106) mg/dL Calcium 9.4 D (8.5-10.1) mg/dL Total Bilirubin 0.7 (0.2-1.0) mg/dL AST 36 (15-37) U/L ALT 87 H (12-78) U/L Alkaline Phosphatase 105 (46-116) IU/L Total Protein 7.4 (6.4-8.2) g/dL Albumin 3.8 (3.4-5.0) g/dL Amylase 43 (25-115) U/L Lipase 120 (73-393) U/L Meds: Medications Generic Name Dose Route Start Last Admin Trade Name Krystal PRN Reason Stop Dose Admin Sodium Chloride 1,000 mls @ 1,000 mls/hr 11/06/19 17:10 Normal Saline IV 11/06/19 18:09 .BOLUS ONE - Re-Assessments/Exams Free Text/Narrative Re-Assessment/Exam: 11/06/19 18:06 Pt stable in ER Pt given NS 1 L IV Departure - Departure Time of Disposition: 18:15 Disposition: Home, Self-Care 01 Clinical Impression: Gastroenteritis - Discharge Information *PRESCRIPTION DRUG MONITORING PROGRAM REVIEWED*: Not Applicable *COPY OF PRESCRIPTION DRUG MONITORING REPORT IN PATIENT CHANG: Not Applicable Instructions: Viral Gastroenteritis, Adult, [id number] Additional Instructions: [place] diet Encourage fluids Follow up in clinic Sepsis Event Note (ED) - Evaluation Sepsis Screening Result: No Definite Risk - Focused Exam Vital Signs: Vital Signs Temp Pulse Resp BP Pulse Ox 11/06/19 17:28 97.8 F 60 16 123/52 L 97 - My Orders Last 24 Hours: My Active Orders 11/06/19 17:10 Sodium Chloride 0.9% [Normal Saline] 1,000 ml IV .BOLUS - Assessment/Plan Last 24 Hours: My Active Orders 11/06/19 17:10 Sodium Chloride 0.9% [Normal Saline] 1,000 ml IV .BOLUS
== END 2019-11-06 18:30 | disposition home or self-care (01) ==
LOC: LL.ED 17:02
DX: K52.9 Noninfective gastroenteritis and colitis, unspecified (principal); I10 Essential (primary) hypertension; I25.10 Atherosclerotic heart disease of native coronary artery without angina pectoris; E78.00 Pure hypercholesterolemia, unspecified; M19.90 Unspecified osteoarthritis, unspecified site; N40.0 Benign prostatic hyperplasia without lower urinary tract symptoms; F41.9 Anxiety disorder, unspecified; F32.9 Major depressive disorder, single episode, unspecified; E11.9 Type 2 diabetes mellitus without complications; E03.9 Hypothyroidism, unspecified; E66.9 Obesity, unspecified; Z87.891 Personal history of nicotine dependence; Z79.82 Long term (current) use of aspirin; Z79.4 Long term (current) use of insulin; Z79.899 Other long term (current) drug therapy
CPT/HCPCS: 36415; 80053; 82150; 83690; 85025; 96360; 99282; 99284; J7030

== ENCOUNTER 2020-03-22 11:58 | Emergency (ER) | payer MEDICARE, BC ==
[2020-03-22 12:28] LABS: CHLORIDE,CL 101 mmol/L (98-107); SODIUM,NA 138 mmol/L (136-145)
--- NOTE | 2020-03-22 12:41 | EDM.PDOC ---
ED HPI GENERAL MEDICAL PROBLEM - General Chief Complaint: Trauma Stated Complaint: confusion, head laceration Time Seen by Provider: 03/22/20 12:05 Source of Information: Reports: Patient, Family History Limitations: Reports: No Limitations - History of Present Illness INITIAL COMMENTS - FREE TEXT/NARRATIVE: Patient observed to ambulate into the ER accompanied by . He experienced an unwitnessed fall with contusion to left side of head. May have been secondary to hypoglycemia as patient is prone to hypoglycemic episodes per . Was out on his own a maximum of 30 min prior to finding him like this. Has no idea the circumstances around injury. Remembers that he was planning to burn garbage when he was out doing chores and was riding on his small tractor at one point. 13:16 Patient recalls being on ladder and feeling woozy/starting to fall in his shop. - Related Data Allergies Allergy/AdvReac Type Severity Reaction Status Date / Time No Known Allergies Allergy Verified 03/22/20 12:30 Home Meds: Home Meds Aspirin [Adult Low Dose Aspirin EC] 81 mg PO QPM 10/07/16 [History] DULoxetine [Cymbalta] 60 mg PO QPM 10/07/16 [History] Levothyroxine 25 mcg PO QAM 10/07/16 [History] Tamsulosin [Flomax] 2 cap PO QAM 08/30/17 [History] Biotin 10 mg PO QAM 09/23/19 [History] Finasteride 5 mg PO QAM 09/23/19 [History] Multivit-Min/Iron/Folic Acid/K [Bariatric Mv-Iron 45 mg Cap] 1 each PO DAILY 09/23/19 [History] Potassium Gluconate 1 tab PO QAM 09/23/19 [History] Rosuvastatin [Crestor] 5 mg PO QAM 09/23/19 [History] metFORMIN HCl [Metformin ER Gastric] 500 mg PO QAM 09/23/19 [History] Insulin Aspart [NovoLOG] 4 - 6 units SQ TIDMEALS 11/06/19 [History] Insulin Detemir [Levemir] 17 units SQ BEDTIME 11/06/19 [History] Past Medical History HEENT History: Reports: Cataract, Hard of Hearing, Other (See Below) Other HEENT History: Bilateral presbycusismild. Mild bilateral tinnitus Cardiovascular History: Reports: CAD, High Cholesterol, Hypertension, Syncope, Other (See Below) Other Cardiovascular History: Near syncopal episode on 09/15/08. Dyslipidemia. Borderline inferior wall cardiac ischemia by Cardiolite scan in 2005 with negative subsequent heart catheterization as below. Respiratory History: Reports: Intubation, Previous, Sleep Apnea Other Respiratory History: Patient compliant with CPAP. Gastrointestinal History: Reports: Colon Polyp, Other (See Below) Other Gastrointestinal History: Previous history of unknown type of colonic polyps Genitourinary History: Reports: BPH, Urinary Incontinence, Other (See Below) Other Genitourinary History: Erectile dysfunction Musculoskeletal History: Reports: Arthritis, Back Pain, Chronic, Fracture, Neck Pain, Chronic, Osteoarthritis, Osteoporosis, Other (See Below) Other Musculoskeletal History: Middle phalangeal fracture of digit #4 of the left hand requiring surgery as below in 2017 Neurological History: Reports: Concussion, Head Trauma, Other (See Below) Other Neuro History: Possible head concussion in January 2017 with no physician evaluation Psychiatric History: Reports: Addiction, Anxiety, Depression, Psych Hospitalization(s), Other (See Below) Other Psychiatric History: 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 Endocrine/Metabolic History: Reports: Diabetes, Type II, Hypothyroidism, IDDM, Obesity/BMI 30+, Osteopenia, Other (See Below) Other Endocrine/Metabolic History: Obesity with previous gastric bypass Hematologic History: Reports: Anemia, B12 Deficiency Immunologic History: Reports: None Oncologic (Cancer) History: Reports: None Dermatologic History: Reports: None - Infectious Disease History Infectious Disease History: Reports: Chicken Pox, Measles, Mumps, Shingles - Past Surgical History Head Surgeries/Procedures: Reports: None HEENT Surgical History: Reports: Cataract Surgery, Oral Surgery, Other (See Below) Other HEENT Surgeries/Procedures: Bilateral cataract surgery 2007. Tooth extractions. Cardiovascular Surgical History: Reports: None Respiratory Surgical History: Reports: None GI Surgical History: Reports: Bariatric Procedure, Colonoscopy, Polypectomy, Other (See Below) Other GI Surgeries/Procedures: Last colonoscopy in about 2009 with previous history of polypectomy. Gastric bypass surgery in August 2013. Male Surgical History: Reports: Circumcision, Other (See Below) Other Male Surgeries/Procedures: Circumcision as an infant. Penile implant in about 2004. Endocrine Surgical History: Reports: None Musculoskeletal Surgical History: Reports: ORIF, Other (See Below) Other Musculoskeletal Surgeries/Procedures:: ORIF of middle phalangeal fracture of digit #4 of the left hand in 2017 Oncologic Surgical History: Reports: None Dermatological Surgical History: Reports: None - Past Imaging History Past Imaging History: Reports: Angiography (2005), CAT Scan (CT of the sinuses on 06/15/16), DEXA Scan (10/28/10), Sleep Study (09/29/05), Stress Testing (Cardiolite stress test on 07/08/05 with findings as above with ejection fraction of 71%), Ultrasound (Scrotal ultrasound on 11/18/12. 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 Denies: Bloody Discharge Nose: Denies: Clots, Epistaxis, Pain, Bloody Discharge Mouth/Throat: Reports: No Symptoms. Denies: Loose Teeth Respiratory: Reports: No Symptoms. Denies: Shortness of Breath Cardiovascular: Reports: No Symptoms. Denies: Chest Pain GI/Abdominal: Reports: No Symptoms. Denies: Abdominal Pain, Nausea, Vomiting Musculoskeletal: Reports: Other (no acute changes from baseline). Denies: Neck Pain Skin: Reports: Wound (left sided laceration of head) Neurological: Reports: Dizziness (at time of fall), Headache, Syncope. Denies: Tingling, Trouble Speaking, Difficulty Walking, Change in Speech, Gait Disturbance Psychiatric: Reports: Confusion (around events at time of and right after fall) ED EXAM, GENERAL - Physical Exam Exam: See Below Exam Limited By: No Limitations General Appearance: Alert, WD/WN, No Apparent Distress Eye Exam: Bilateral Eye: EOMI, PERRL (1mm difference noted between pupil size) Ears: Normal External Exam, Normal Canal Nose: No: Nasal Deformity, Nasal Swelling, Nasal Drainage Throat/Mouth: Normal Lips, Normal Voice, No Airway Compromise Head: Facial Swelling, Facial Tenderness (left lateral face/ear area). No: S inus Tenderness Neck: Supple, Non-Tender Respiratory/Chest: No Respiratory Distress, Lungs Clear, No Accessory Muscle Use, Chest Non-Tender Cardiovascular: Regular Rate, Rhythm, No Murmur GI/Abdominal: Normal Bowel Sounds, Soft, Non-Tender, No Distention (Male) Exam: Deferred Rectal (Males) Exam: Deferred Back Exam: No: CVA Tenderness (L), CVA Tenderness (R), Muscle Spasm Extremities: Non-Tender, Normal Capillary Refill Neurological: Alert, Oriented, CN II-XII Intact, Normal Cognition, Normal Gait, No Motor/Sensory Deficits Psychiatric: Normal Affect, Normal Mood Skin Exam: Warm, Wound/Incision (laceration left lateral eyebrow area) ED TRAUMA PROCEDURES - Laceration/Wound Repair Left Forehead Lac/Wound Length In cm: 3 (2cm linear with addional 1cm branch-off) Appearance: Subcutaneous, Stellate, Clean Anesthetic Type: Local Local Anesthesia - Lidocaine (Xylocaine): 2% with EPI Local Anesthetic Volume: 5cc Skin Prep: Providone-Iodine (Betadine) Exploration/Debridement/Repair: Wound Explored, In a Bloodless Field, Explored to Base, No Foreign Material Found, Multiple Flaps Aligned Closed With: Sutures Suture Size: 3-0 # of Sutures: 5 Suture Type: Interrupted Drain Placement: No Sterile Dressing Applied: Nurse Tetanus Status Addressed: Yes Complications: No Course - Orders/Labs/Meds Orders: Active Orders 24 hr Category Date Time Status Cervical Spine wo Cont [CT] Stat Exams 03/22/20 12:07 Taken Head wo Cont [CT] Stat Exams 03/22/20 12:07 Taken UA W/PEDRO RFLX IF INDICATED [URIN] Stat Lab 03/22/20 12:09 Ordered Labs: Laboratory Tests 03/22/20 03/22/20 03/22/20 Range/Units 12:10 12:10 12:12 WBC 4.9 (4.0-10.2) K/uL RBC 4.31 L (4.33-5.41) M/uL Hgb 13.5 (13.1-16.8) g/dL Hct 40.3 (39.0-49.0) % MCV 93.5 (84.0-98.0) fL MCH 31.3 (28.2-33.3) pg MCHC 33.5 (31.7-36.0) g/dL RDW 12.8 (11.2-14.1) % Plt Count 221 (150-350) K/uL Neut % (Auto) 66.0 (45.0-80.0) % Lymph % (Auto) 23.2 (10.0-50.0) % [place] % (Auto) 9.0 (2.0-14.0) % Eos % (Auto) 1.6 (0.0-5.0) % Baso % (Auto) 0.2 (0.0-2.0) % Neut # (Auto) 3.24 (1.40-7.00) K/uL Lymph # (Auto) 1.14 (0.50-3.50) K/uL [place] # (Auto) 0.44 (0.00-1.00) K/uL Eos # (Auto) 0.08 (0.00-0.50) K/uL Baso # (Auto) 0.01 (0.00-0.20) K/uL Sodium 138 (136-145) mmol/L Potassium 3.4 L (3.5-5.1) mmol/L Chloride 101 (98-107) mmol/L Carbon Dioxide 25.9 (21.0-32.0) mmol/L BUN 20 H (7-18) mg/dL Creatinine 0.62 (0.51-1.17) mg/dL Est Cr Clr Drug Dosing TNP Estimated GFR (MDRD) > 60 mL/min Glucose 92 (74-106) mg/dL Calcium 8.4 L (8.5-10.1) mg/dL Magnesium 2.0 (1.8-2.4) mg/dL Total Bilirubin 0.4 (0.2-1.0) mg/dL AST 25 (15-37) U/L ALT 41 (12-78) U/L Alkaline Phosphatase 101 (46-116) IU/L Total Protein 7.1 (6.4-8.2) g/dL Albumin 3.7 (3.4-5.0) g/dL Meds: Medications Discontinued Medications Generic Name Dose Route Start Last Admin Trade Name Krystal PRN Reason Stop Dose Admin Lidocaine/Epinephrine 20 ml 03/22/20 13:08 03/22/20 13:46 Xylocaine 2% With Epinephrine 1:100,000 INJECT 03/22/20 13:09 20 ml ONETIME ONE Administration Neomycin/Polymyxin/Bacitracin 1 each 03/22/20 13:46 03/22/20 13:59 Triple Antibiotic Oint TOP 03/22/20 13:47 1 each ONETIME ONE Administration - Re-Assessments/Exams Free Text/Narrative Re-Assessment/Exam: 03/22/20 13:28 CT of head and neck performed right after arrival/trauma code called. CBC/Chem overall unremarkable. Dried blood around face and facial laceration cleansed by nursing staff. Laceration to be repaired. 03/22/20 14:25 Laceration repaired. Wound care reviewed. Tetanus is up to date. Pressure dressing applied. Sutures out at end of this week. Blood sugar rechecked several times. Patient reminded to not take insulin if his blood sugar at home is under 150--he admitted to taking some insulin this morning even though his BS was in 130s. Precautions reviewed with patient and . To return to ER PRN problems/neuro changes. Otherwise to follow up for suture removal Tuesday and also needs to follow up with his PCP about incidental thyroid nodule noted on CT of neck. Patient and in agreement with plan. Departure - Departure Time of Disposition: 14:14 Disposition: Home, Self-Care 01 Condition: Good Clinical Impression: Hypoglycemia Fall Qualifiers: Encounter type: initial encounter Qualified Code(s): W19.XXXA - Unspecified fall, initial encounter Head contusion Qualifiers: Encounter type: initial encounter Contusion of head detail: orbital tissues Laterality: left Qualified Code(s): S05.12XA - Contusion of eyeball and orbital tissues, left eye, initial encounter - Discharge Information *PRESCRIPTION DRUG MONITORING PROGRAM REVIEWED*: Not Applicable *COPY OF PRESCRIPTION DRUG MONITORING REPORT IN PATIENT CHANG: Not Applicable Instructions: Sutured Wound Care, Sutures, [place], or Adhesive Wound Closure Referrals: Tawanna Omer PA-C [Primary Care Provider] - Forms: ED Department Discharge Additional Instructions: Pay attention to insulin dosing regimens. Do NOT take insulin when your blood sugar is low enough that the protocol says you DO NOT need insulin. Keep pressure dressing in place for 24 hours. OK to remove tomorrow. Put antibiotic ointment on healing wound several times a day. Sutures to be removed Tuesday this coming week. Follow up in ER as needed for any acute changes such as infection/altered mental status/neuro changes noted. OK to take shower on Tuesday. Remember to discuss Thyroid nodule with you primary provider and any additional follow up that might be needed. - My Orders Last 24 Hours: My Active Orders 03/22/20 12:07 Cervical Spine wo Cont [CT] Stat Head wo Cont [CT] Stat 03/22/20 12:09 UA W/PEDRO RFLX IF INDICATED [URIN] Stat - Assessment/Plan Last 24 Hours: My Active Orders 03/22/20 12:07 Cervical Spine wo Cont [CT] Stat Head wo Cont [CT] Stat 03/22/20 12:09 UA W/PEDRO RFLX IF INDICATED [URIN] Stat
[2020-03-22] MEDS ORDERED: Lidocaine 2% with EPINEPHrine 1:100,000 20 ML MDV INJECT ONE (13:08)
[2020-03-22] MEDS ORDERED: Bacitracin/Neomycin/Polymyxin B Oint 0.9 GM U/D Packet TOP ONE (13:46)
== END 2020-03-22 14:55 | disposition home or self-care (01) ==
LOC: LL.ED 11:58
DX: S01.81XA Laceration without foreign body of other part of head, initial encounter (principal); S05.12XA Contusion of eyeball and orbital tissues, left eye, initial encounter; E11.649 Type 2 diabetes mellitus with hypoglycemia without coma; I25.10 Atherosclerotic heart disease of native coronary artery without angina pectoris; E78.00 Pure hypercholesterolemia, unspecified; I10 Essential (primary) hypertension; M19.90 Unspecified osteoarthritis, unspecified site; N40.0 Benign prostatic hyperplasia without lower urinary tract symptoms; E03.9 Hypothyroidism, unspecified; E66.9 Obesity, unspecified; Z79.4 Long term (current) use of insulin; Z79.82 Long term (current) use of aspirin; W19.XXXA Unspecified fall, initial encounter
CPT/HCPCS: 12013; 36415; 70450; 72125; 80053; 82962; 83735; 85025; 99283; 99284-25

== ENCOUNTER 2020-12-19 09:49 | Emergency (ER) | payer MEDICARE, BC ==
[2020-12-19 11:05] LABS: ANION GAP 6.8 meq/L (7-15); CHLORIDE,CL 104 mmol/L (98-107); SODIUM,NA 139 mmol/L (136-145)
[2020-12-19] MEDS ORDERED: Lidocaine 2% with EPINEPHrine 1:100,000 20 ML MDV INJECT ONE (12:13)
[2020-12-19] MEDS ORDERED: Bacitracin/Neomycin/Polymyxin B Oint 0.9 GM U/D Packet TOP ONE (13:59)
[2020-12-19] MEDS ORDERED: Bacitracin Oint 1 GM U/D Packet TOP ONE (14:00)
--- NOTE | 2020-12-19 14:06 | EDM.PDOC ---
ED HPI GENERAL MEDICAL PROBLEM - General Chief Complaint: Laceration Stated Complaint: fall, laceration Time Seen by Provider: 12/19/20 10:20 Source of Information: Reports: Patient History Limitations: Reports: Other (Does not recall all details around passing out/falling. ) - History of Present Illness INITIAL COMMENTS - FREE TEXT/NARRATIVE: Patient comes to ER after falling/sustaining a laceration to back of head. Got up around 6am per patient/. She did not see him again until around 9 and when he came into the house he had large laceration on back of head. Patient thinks problem started when he took extra insulin because morning blood sugar was a bit high but he neglected to eat him morning protein bar as usual, leading to hypoglycemia. He is not really sure how/when/where he fell or how long he was down. Has had issues with hypoglycemia/falls in past. Denies other acute changes or injuries. Was otherwise a normal day for him. No problems with recent illness or other new health complaints. No other acute pain complaints/neuro changes. Tetanus is uncertain. Blood sugar this AM was around 260 and patient thinks he took around 10 extra units. 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) - Related Data Allergies Allergy/AdvReac Type Severity Reaction Status Date / Time No Known Allergies Allergy Verified 05/27/20 13:36 Home Meds: Home Meds Aspirin [Adult Low Dose Aspirin EC] 81 mg PO QPM 10/07/16 [History] DULoxetine [Cymbalta] 60 mg PO QPM 10/07/16 [History] Levothyroxine 25 mcg PO QAM 10/07/16 [History] Tamsulosin [Flomax] 2 cap PO QAM 08/30/17 [History] Biotin 10 mg PO QAM 09/23/19 [History] Finasteride 5 mg PO QAM 09/23/19 [History] Multivit-Min/Iron/Folic Acid/K [Bariatric Mv-Iron 45 mg Cap] 2 each PO DAILY 09/23/19 [History] Potassium Gluconate 1 tab PO QAM 09/23/19 [History] Rosuvastatin [Crestor] 5 mg PO QAM 09/23/19 [History] metFORMIN HCl [Metformin ER Gastric] 500 mg PO QAM 09/23/19 [History] Insulin Aspart [NovoLOG] 4 - 6 units SQ TIDMEALS 11/06/19 [History] Insulin Detemir [Levemir] 22 units SQ BEDTIME 11/06/19 [History] Multivit-Min/Iron/Folic Acid/K [Bariatric Mv-Iron 45 mg Cap] 1 tab PO BEDTIME 12/19/20 [History] cephALEXin [Keflex] 500 mg PO Q8H #21 cap 12/19/20 [Rx] Past Medical History HEENT History: Reports: Cataract, Hard of Hearing, Other (See Below) Other HEENT History: Bilateral presbycusismild. Mild bilateral tinnitus Cardiovascular History: Reports: CAD, High Cholesterol, Hypertension, Syncope, Other (See Below) Other Cardiovascular History: Near syncopal episode on 09/15/08. Dyslipidemia. Borderline inferior wall cardiac ischemia by Cardiolite scan in 2005 with negative subsequent heart catheterization as below. Respiratory History: Reports: Intubation, Previous, Sleep Apnea Other Respiratory History: Patient compliant with CPAP. Gastrointestinal History: Reports: Colon Polyp, Other (See Below) Other Gastrointestinal History: Previous history of unknown type of colonic polyps Genitourinary History: Reports: BPH, Urinary Incontinence, Other (See Below) Other Genitourinary History: Erectile dysfunction Musculoskeletal History: Reports: Arthritis, Back Pain, Chronic, Fracture, Neck Pain, Chronic, Osteoarthritis, Osteoporosis, Other (See Below) Other Musculoskeletal History: Middle phalangeal fracture of digit #4 of the left hand requiring surgery as below in 2017 Neurological History: Reports: Concussion, Head Trauma, Other (See Below) Other Neuro History: Possible head concussion in January 2017 with no physician evaluation Psychiatric History: Reports: Addiction, Anxiety, Depression, Psych Hospitalization(s), Other (See Below) Other Psychiatric History: 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 Endocrine/Metabolic History: Reports: Diabetes, Type II, Hypothyroidism, IDDM, Obesity/BMI 30+, Osteopenia, Other (See Below) Other Endocrine/Metabolic History: Obesity with previous gastric bypass Hematologic History: Reports: Anemia, B12 Deficiency Immunologic History: Reports: None Oncologic (Cancer) History: Reports: None Dermatologic History: Reports: None - Infectious Disease History Infectious Disease History: Reports: Chicken Pox, Measles, Mumps, Shingles - Past Surgical History Head Surgeries/Procedures: Reports: None HEENT Surgical History: Reports: Cataract Surgery, Oral Surgery, Other (See Below) Other HEENT Surgeries/Procedures: Bilateral cataract surgery 2007. Tooth extractions. Cardiovascular Surgical History: Reports: None Respiratory Surgical History: Reports: None GI Surgical History: Reports: Bariatric Procedure, Colonoscopy, Polypectomy, Other (See Below) Other GI Surgeries/Procedures: Last colonoscopy in about 2009 with previous history of polypectomy. Gastric bypass surgery in August 2013. Male Surgical History: Reports: Circumcision, Other (See Below) Other Male Surgeries/Procedures: Circumcision as an infant. Penile implant in about 2004. Endocrine Surgical History: Reports: None Musculoskeletal Surgical History: Reports: ORIF, Other (See Below) Other Musculoskeletal Surgeries/Procedures:: ORIF of middle phalangeal fracture of digit #4 of the left hand in 2016 Oncologic Surgical History: Reports: None Dermatological Surgical History: Reports: None - Past Imaging History Past Imaging History: Reports: Angiography (2005), CAT Scan (CT of the sinuses on 06/15/16), DEXA Scan (10/28/10), Sleep Study (09/29/05), Stress Testing (Cardiolite stress test on 07/08/05 with findings as above with ejection fraction of 71%), Ultrasound (Scrotal ultrasound on 11/18/12. 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 Denies: Vision Change Respiratory: Reports: Other (no acute changes). Denies: Pleuritic Chest Pain Cardiovascular: Reports: Syncope (suspected), Other (no acute changes otherwise). Denies: Chest Pain Endocrine: Reports: Other (IDDM) GI/Abdominal: Reports: Other (no acute changes) : Reports: No Symptoms Musculoskeletal: Reports: Other (no acute changes) Skin: Reports: Wound (back of head) Neurological: Reports: Syncope (suspected). Denies: Dizziness, Headache, Trouble Speaking, Change in Speech Psychiatric: Reports: No Symptoms ED EXAM, SKIN/RASH Exam: See Below Exam Limited By: No Limitations General Appearance: Alert, WD/WN, No Apparent Distress Eye Exam: Bilateral Eye: EOMI, PERRL Ears: Normal External Exam, Normal Canal, Hearing Grossly Normal Nose: No: Nasal Deformity, Nasal Swelling, Nasal Drainage Throat/Mouth: Normal Lips, Normal Voice, No Airway Compromise Head: Other (large laceration just to left of midline posterior scalp with associated edema) Neck: Normal Inspection, Supple, Non-Tender, Full Range of Motion Respiratory/Chest: No Respiratory Distress, Lungs Clear, Normal Breath Sounds, No Accessory Muscle Use, Chest Non-Tender Cardiovascular: Regular Rate, Rhythm, No Murmur GI/Abdominal: Normal Bowel Sounds, Soft, Non-Tender, No Distention (Male) Exam: Deferred Rectal (Males) Exam: Deferred Back Exam: No: Muscle Spasm, Paraspinal Tenderness, Vertebral Tenderness Extremities: Non-Tender, Normal Capillary Refill Neurological: Alert, Oriented, CN II-XII Intact, Normal Cognition, No Motor/Sensory Deficits Psychiatric: Normal Affect, Normal Mood Skin: Warm, Wound/Incision Location, Skin: Head Associated features: Swelling ED SKIN PROCEDURES - Laceration/Wound Repair Posterior Head Appearance: Stellate (Large stellate laceration measuring 6cm across in longest direction) Anesthetic Type: Local Local Anesthesia - Lidocaine (Xylocaine): 2% with EPI Local Anesthetic Volume: Other (10) Skin Prep: Chlorhexidine (Hibiciens), Saline Exploration/Debridement/Repair: Wound Explored, In a Bloodless Field, Explored to Base, Minimal Debridement, Foreign Material Removed, Multiple Flaps Aligned Closed with: Sutures Lac/Wound length In cm: 6.0 Suture Size: 3-0 # of Sutures: 12 Suture Type: Prolene, Simple, Mattress Suture Size: 3-0 # of Sutures: 5 Repaired with: Vicryl Drain Placement: No Sterile Dressing Applied: Nurse Tetanus Status Addressed: Yes Complications: No Course - Vital Signs Last Recorded V/S: Last Vital Signs Temp 36.5 C 12/19/20 10:23 Pulse 59 L 12/19/20 10:23 Resp 16 12/19/20 10:23 BP 123/59 L 12/19/20 10:23 Pulse Ox 95 12/19/20 10:23 - Orders/Labs/Meds Orders: Active Orders 24 hr Category Date Time Status Blood Glucose Check, Bedside [RC] ONETIME Care 12/19/20 09:51 Active Cervical Spine wo Cont [CT] Stat Exams 12/19/20 09:55 Taken Head wo Cont [CT] Stat Exams 12/19/20 09:54 Taken Labs: Laboratory Tests 12/19/20 12/19/20 12/19/20 Range/Units 10:19 10:23 10:30 WBC 7.0 (4.0-10.2) K/uL RBC 4.07 L (4.33-5.41) M/uL Hgb 12.9 L (13.1-16.8) g/dL Hct 38.3 L (39.0-49.0) % MCV 94.1 (84.0-98.0) fL MCH 31.7 (28.2-33.3) pg MCHC 33.7 (31.7-36.0) g/dL RDW 14.1 (11.2-14.1) % Plt Count 213 (150-350) K/uL Neut % (Auto) 74.0 (45.0-80.0) % Lymph % (Auto) 13.8 (10.0-50.0) % Bosque % (Auto) 11.0 (2.0-14.0) % Eos % (Auto) 1.1 (0.0-5.0) % Baso % (Auto) 0.1 (0.0-2.0) % Neut # (Auto) 5.18 (1.40-7.00) K/uL Lymph # (Auto) 0.97 (0.50-3.50) K/uL Bosque # (Auto) 0.77 (0.00-1.00) K/uL Eos # (Auto) 0.08 (0.00-0.50) K/uL Baso # (Auto) 0.01 (0.00-0.20) K/uL Sodium (136-145) mmol/L Potassium (3.5-5.1) mmol/L Chloride (98-107) mmol/L Carbon Dioxide (21.0-32.0) mmol/L Anion Gap (7-15) meq/L BUN (7-18) mg/dL Creatinine (0.51-1.17) mg/dL Est Cr Clr Drug Dosing mL/min Estimated GFR (MDRD) mL/min Glucose (70-99) mg/dL POC Glucose 119 H (70-99) mg/dL Calcium (8.5-10.1) mg/dL Magnesium (1.8-2.4) mg/dL Total Bilirubin (0.2-1.0) mg/dL AST (15-37) U/L ALT (12-78) U/L Alkaline Phosphatase (46-116) IU/L Total Protein (6.4-8.2) g/dL Albumin (3.4-5.0) g/dL Specimen Type Urinvoid Urine Color Yellow Urine Appearance Slightly cloudy Urine pH 5.5 (5.0-9.0) Ur Specific Matthews 1.020 (1.005-1.030) Urine Protein Negative (NEGATIVE) mg/dL Urine Glucose (UA) 100 H (NEGATIVE) mg/dL Urine Ketones Negative (NEGATIVE) mg/dL Urine Occult Blood Negative (NEGATIVE) Urine Nitrite Negative (NEGATIVE) Urine Bilirubin Negative (NEGATIVE) Urine Urobilinogen 0.2 (0.2-1.0) E.U./dL Ur Leukocyte Esterase Negative (NEGATIVE) Urine RBC 0-5 /HPF Urine WBC 0-5 /HPF Ur Epithelial Cells Rare /LPF Urine Mucus Few H (NEGATIVE) /LPF // Range/Units 10:30 WBC (4.0-10.2) K/uL RBC (4.33-5.41) M/uL Hgb (13.1-16.8) g/dL Hct (39.0-49.0) % MCV (84.0-98.0) fL MCH (28.2-33.3) pg MCHC (31.7-36.0) g/dL RDW (11.2-14.1) % Plt Count (150-350) K/uL Neut % (Auto) (45.0-80.0) % Lymph % (Auto) (10.0-50.0) % Bosque % (Auto) (2.0-14.0) % Eos % (Auto) (0.0-5.0) % Baso % (Auto) (0.0-2.0) % Neut # (Auto) (1.40-7.00) K/uL Lymph # (Auto) (0.50-3.50) K/uL Bosque # (Auto) (0.00-1.00) K/uL Eos # (Auto) (0.00-0.50) K/uL Baso # (Auto) (0.00-0.20) K/uL Sodium 139 (136-145) mmol/L Potassium 4.4 (3.5-5.1) mmol/L Chloride 104 (98-107) mmol/L Carbon Dioxide 28.2 (21.0-32.0) mmol/L Anion Gap 6.8 L (7-15) meq/L BUN 21 H (7-18) mg/dL Creatinine 0.91 (0.51-1.17) mg/dL Est Cr Clr Drug Dosing 69.08 mL/min Estimated GFR (MDRD) > 60 mL/min Glucose 161 H (70-99) mg/dL POC Glucose (70-99) mg/dL Calcium 7.9 L (8.5-10.1) mg/dL Magnesium 2.0 (1.8-2.4) mg/dL Total Bilirubin 0.4 (0.2-1.0) mg/dL AST 30 (15-37) U/L ALT 60 (12-78) U/L Alkaline Phosphatase 81 (46-116) IU/L Total Protein 6.4 (6.4-8.2) g/dL Albumin 3.4 (3.4-5.0) g/dL Specimen Type Urine Color Urine Appearance Urine pH (5.0-9.0) Ur Specific Matthews (1.005-1.030) Urine Protein (NEGATIVE) mg/dL Urine Glucose (UA) (NEGATIVE) mg/dL Urine Ketones (NEGATIVE) mg/dL Urine Occult Blood (NEGATIVE) Urine Nitrite (NEGATIVE) Urine Bilirubin (NEGATIVE) Urine Urobilinogen (0.2-1.0) E.U./dL Ur Leukocyte Esterase (NEGATIVE) Urine RBC /HPF Urine WBC /HPF Ur Epithelial Cells /LPF Urine Mucus (NEGATIVE) /LPF Meds: Medications Discontinued Medications Generic Name Dose Route Start Last Admin Trade Name Freq PRN Reason Stop Dose Admin Lidocaine/Epinephrine 20 ml 12/19/20 12:13 12/19/20 12:46 Lidocaine 2% With Epinephrine 1:100,000 20 Ml Mdv INJECT 12/19/20 12:14 20 ml ONETIME ONE Administration - Re-Assessments/Exams Free Text/Narrative Re-Assessment/Exam: 12/19/20 14:18 Large stellate laceration noted on back of head. Blood sugar still a bit low upon arrival but this improved with PO juice. CT of head and neck ordered given patient's fall and inability to recall events and timeline around the fall. Negative for acute changes per Radiology. Prolonged time between sending CT to be read and results due to large volume of studies being reviewed by Radiology at [facility]. Patient observed during this time and remained comfortable. Allowed to have lunch prior to closure of wound. CBC/Chem/UA overall unremarkable. Head laceration repaired. Complex closure. Wound care reviewed with patient and his . Sutures out in 10 days. Precautions reviewed/to return for recheck if any problems/signs infection/neuro changes noted. Coverage with Keflex for 7 days to avoid wound infection. Departure - Departure Time of Disposition: 14:00 Disposition: Home, Self-Care 01 Condition: Good Clinical Impression: Hypoglycemia Fall Qualifiers: Encounter type: initial encounter Qualified Code(s): W19.XXXA - Unspecified fall, initial encounter Head contusion Qualifiers: Encounter type: initial encounter Contusion of head detail: scalp Qualified Code(s): S00.03XA - Contusion of scalp, initial encounter Occipital scalp laceration Qualifiers: Encounter type: initial encounter Qualified Code(s): S01.01XA - Laceration without foreign body of scalp, initial encounter - Discharge Information *PRESCRIPTION DRUG MONITORING PROGRAM REVIEWED*: Not Applicable *COPY OF PRESCRIPTION DRUG MONITORING REPORT IN PATIENT CHANG: Not Applicable Instructions: Facial or Scalp Contusion, [id number], Laceration Care, Adult, [id number] Referrals: Tawanna Omer PA-C [Primary Care Provider] - Additional Instructions: Make an appointment for suture removal in 10 days on December 30 at clinic. Warn them it is going to take awhile to get all of the sutures out. Observe for changes and get rechecked if there is any concern for acute mental status change/new confusion or new neuro changes or if you think the wound is getting infected. We tried to make sure no gravel was left inside the wound, but there is a chance down the road you may need to deal with ingrown hair around the wound edges or a stray piece of suture or gravel getting pushed out. Ice/keep h ead elevated/take Tylenol for pain. Take Keflex to help avoid wound infection. Follow up otherwise as needed if other problems/concerns arise. Sepsis Event Note (ED) - Evaluation Sepsis Screening Result: No Definite Risk - Focused Exam Vital Signs: Vital Signs Temp Pulse Resp BP Pulse Ox 12/19/20 10:23 36.5 C 59 L 16 123/59 L 95 - My Orders Last 24 Hours: My Active Orders 12/19/20 09:51 Blood Glucose Check, Bedside [RC] ONETIME 12/19/20 09:54 Head wo Cont [CT] Stat 12/19/20 09:55 Cervical Spine wo Cont [CT] Stat - Assessment/Plan Last 24 Hours: My Active Orders 12/19/20 09:51 Blood Glucose Check, Bedside [RC] ONETIME 12/19/20 09:54 Head wo Cont [CT] Stat 12/19/20 09:55 Cervical Spine wo Cont [CT] Stat
[2020-12-19 15:29] VITALS: BP 117/66; PULSE 61
== END 2020-12-19 14:30 | disposition home or self-care (01) ==
LOC: LL.ED 09:49
DX: S01.01XA Laceration without foreign body of scalp, initial encounter (principal); E11.649 Type 2 diabetes mellitus with hypoglycemia without coma; E78.00 Pure hypercholesterolemia, unspecified; I10 Essential (primary) hypertension; E03.9 Hypothyroidism, unspecified; E66.9 Obesity, unspecified; D64.9 Anemia, unspecified; Z68.25 Body mass index [BMI] 25.0-25.9, adult; Z79.899 Other long term (current) drug therapy; W19.XXXA Unspecified fall, initial encounter; Z79.82 Long term (current) use of aspirin; Z79.4 Long term (current) use of insulin; Z91.81 History of falling
CPT/HCPCS: 12002; 36415; 70450; 72125; 80053; 81001; 82947; 83735; 85025; 99283; 99283-25

== ENCOUNTER 2021-04-02 22:56 | Emergency (ER) | payer MEDICARE, BC ==
[2021-04-02] MEDS ORDERED: Phenylephrine 0.5% Nasal Spray 15 ML Bot ONE (23:00)
[2021-04-02 23:05] VITALS: BP 130/71; PULSE 65
[2021-04-02] MEDS ORDERED: Phenylephrine 0.5% Nasal Spray 15 ML Bot NASBOTH ONE (23:14)
--- NOTE | 2021-04-02 23:21 | EDM.PDOC ---
ED HPI GENERAL MEDICAL PROBLEM - General Chief Complaint: ENT Problem Stated Complaint: bloody nose Time Seen by Provider: 04/02/21 23:01 Source of Information: Reports: Patient History Limitations: Reports: No Limitations - History of Present Illness INITIAL COMMENTS - FREE TEXT/NARRATIVE: Patient comes emergency department today from home with concerns of a bloody nose. This patient who is on aspirin but no other anticoagulants was at home and approximately 20 minutes ago developed a bloody nose that he was unable to stop. He had a bloody nose earlier this morning that resolved on its own. He has had no recent trauma injury to his nares. He has not struggled with bloody noses in the past. He has just recently turned on his forced air gas furnace for winter. Has had problems with his CPAP recently and it has not been working with the water and he has been having much more dry her nose and throat. - Related Data Allergies Allergy/AdvReac Type Severity Reaction Status Date / Time No Known Allergies Allergy Verified 04/02/21 23:05 Home Meds: Home Meds Aspirin [Adult Low Dose Aspirin EC] 81 mg PO QPM 10/07/16 [History] DULoxetine [Cymbalta] 60 mg PO QPM 10/07/16 [History] Levothyroxine 25 mcg PO QAM 10/07/16 [History] Tamsulosin [Flomax] 2 cap PO QAM 08/30/17 [History] Biotin 10 mg PO QAM 09/23/19 [History] Finasteride 5 mg PO QAM 09/23/19 [History] Multivit-Min/Iron/Folic Acid/K [Bariatric Mv-Iron 45 mg Cap] 2 each PO DAILY 09/23/19 [History] Potassium Gluconate 1 tab PO QAM 09/23/19 [History] Rosuvastatin [Crestor] 5 mg PO QAM 09/23/19 [History] metFORMIN HCl [Metformin ER Gastric] 500 mg PO QAM 09/23/19 [History] Insulin Aspart [NovoLOG] 4 - 6 units SQ TIDMEALS 11/06/19 [History] Insulin Detemir [Levemir] 22 units SQ BEDTIME 11/06/19 [History] Multivit-Min/Iron/Folic Acid/K [Bariatric Mv-Iron 45 mg Cap] 1 tab PO BEDTIME 12/19/20 [History] cephALEXin [Keflex] 500 mg PO Q8H #21 cap 12/19/20 [Rx] Past Medical History HEENT History: Reports: Cataract, Hard of Hearing, Other (See Below) Other HEENT History: Bilateral presbycusismild. Mild bilateral tinnitus Cardiovascular History: Reports: CAD, High Cholesterol, Hypertension, Syncope, Other (See Below) Other Cardiovascular History: Near syncopal episode on 09/15/08. Dyslipidemia. Borderline inferior wall cardiac ischemia by Cardiolite scan in 2005 with negative subsequent heart catheterization as below. Respiratory History: Reports: Intubation, Previous, Sleep Apnea Other Respiratory History: Patient compliant with CPAP. Gastrointestinal History: Reports: Colon Polyp, Other (See Below) Other Gastrointestinal History: Previous history of unknown type of colonic polyps Genitourinary History: Reports: BPH, Urinary Incontinence, Other (See Below) Other Genitourinary History: Erectile dysfunction Musculoskeletal History: Reports: Arthritis, Back Pain, Chronic, Fracture, Neck Pain, Chronic, Osteoarthritis, Osteoporosis, Other (See Below) Other Musculoskeletal History: Middle phalangeal fracture of digit #4 of the left hand requiring surgery as below in 2017 Neurological History: Reports: Concussion, Head Trauma, Other (See Below) Other Neuro History: Possible head concussion in January 2017 with no physician evaluation Psychiatric History: Reports: Addiction, Anxiety, Depression, Psych Hospitalization(s), Other (See Below) Other Psychiatric History: 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 Endocrine/Metabolic History: Reports: Diabetes, Type II, Hypothyroidism, IDDM, Obesity/BMI 30+, Osteopenia, Other (See Below) Other Endocrine/Metabolic History: Obesity with previous gastric bypass Hematologic History: Reports: Anemia, B12 Deficiency Immunologic History: Reports: None Oncologic (Cancer) History: Reports: None Dermatologic History: Reports: None - Infectious Disease History Infectious Disease History: Reports: Chicken Pox, Measles, Mumps, Shingles - Past Surgical History Head Surgeries/Procedures: Reports: None HEENT Surgical History: Reports: Cataract Surgery, Oral Surgery, Other (See Below) Other HEENT Surgeries/Procedures: Bilateral cataract surgery 2007. Tooth extractions. Cardiovascular Surgical History: Reports: None Respiratory Surgical History: Reports: None GI Surgical History: Reports: Bariatric Procedure, Colonoscopy, Polypectomy, Other (See Below) Other GI Surgeries/Procedures: Last colonoscopy in about 2009 with previous history of polypectomy. Gastric bypass surgery in August 2013. Male Surgical History: Reports: Circumcision, Other (See Below) Other Male Surgeries/Procedures: Circumcision as an infant. Penile implant in about 2004. Endocrine Surgical History: Reports: None Musculoskeletal Surgical History: Reports: ORIF, Other (See Below) Other Musculoskeletal Surgeries/Procedures:: ORIF of middle phalangeal fracture of digit #4 of the left hand in 2017 Oncologic Surgical History: Reports: None Dermatological Surgical History: Reports: None - Past Imaging History Past Imaging History: Reports: Angiography (2005), CAT Scan (CT of the sinuses on 06/15/16), DEXA Scan (10/28/10), Sleep Study (09/29/05), Stress Testing (Cardiolite stress test on 07/08/05 with findings as above with ejection fraction of 71%), Ultrasound (Scrotal ultrasound on 11/18/12. Complete abdominal ultrasound on 11/05/08.) Social & Family History - Family History Family Medical History: Unobtainable - Tobacco Use Tobacco Use Status *Q: Never Tobacco User Second Hand Smoke Exposure: No - Caffeine Use Caffeine Use: Reports: None - Recreational Drug Use Recreational Drug Use: No - Living Situation & Occupation Living situation: Reports: ( his third in 05/05/2003 with no children from that relationship.), (second in 1995), (first ), with Family, Other (No children) Occupation: Retired ([employer] at age 64) ED ROS ENT - Review of Systems Review Of Systems: Comprehensive ROS is negative, except as noted in HPI. ED EXAM, ENT - Physical Exam Exam: See Below Exam Limited By: No Limitations General Appearance: Alert, WD/WN, No Apparent Distress Eye Exam: Bilateral Eye: PERRL Ears: Normal External Exam, Normal Canal, Normal TMs Nose: Active Bleeding (left nares. ). No: Septal Perforation Mouth/Throat: Normal Inspection (Other than posterior pharynx nasal bleeding. Otherwise unremarkable. ) Head: Atraumatic, Normocephalic Neck: Normal Inspection, Supple, Non-Tender Respiratory/Chest: No Respiratory Distress Cardiovascular: Normal Peripheral Pulses Back: Paraspinal Tenderness Neurological: Alert, Oriented, Normal Cognition, No Motor/Sensory Deficits Psychiatric: Normal Affect, Normal Mood Skin: Warm, Dry, Intact, Normal Color, No Rash Course - Vital Signs Last Recorded V/S: Last Vital Signs Temp 97.2 F 04/02/21 23:04 Pulse 65 04/02/21 23:04 Resp 14 04/02/21 23:04 BP 130/71 04/02/21 23:04 Pulse Ox 97 04/02/21 23:04 - Orders/Labs/Meds Orders: Active Orders 24 hr Category Date Time Status Phenylephrine [Jose-Synephrine 0.5% Regular Nasal [place]] Med 04/02/21 23:14 Once 2 ml NASBOTH ONETIME ONE Meds: Medications Discontinued Medications Generic Name Dose Route Start Last Admin Trade Name Krystal PRN Reason Stop Dose Admin Phenylephrine HCl Confirm 04/02/21 23:00 04/02/21 23:10 Phenylephrine 0.5% Nasal [place] 15 Ml Bot Administered 04/02/21 23:01 15 ml Dose Administration 15 ml .ROUTE .STK-MED ONE - Re-Assessments/Exams Free Text/Narrative Re-Assessment/Exam: 04/02/21 23:17 Upon arrival direct pressure was applied just below the nasal bones 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 Then Jose-Synephrine intranasal spray 2 sprays each nostril and another 5 minutes of pressure with resolution of the bleeding. Unable to identify the site of bleeding in the nares with otoscope. He was observed for the next 20 minutes in the ED and no return of bleeding was noted. Discharge instructions as below were explained to the patient. He was comfortable with this plan and his questions answered. Departure - Departure Time of Disposition: 23:30 Disposition: Home, Self-Care 01 Clinical Impression: Epistaxis - Discharge Information *PRESCRIPTION DRUG MONITORING PROGRAM REVIEWED*: Not Applicable *COPY OF PRESCRIPTION DRUG MONITORING REPORT IN PATIENT CHANG: Not Applicable Instructions: Nosebleed, Adult, [id number] Referrals: Tawanna Omer PA-C [Primary Care Provider] - Additional Instructions: DO NOT BLOW your nose. DO NOT put anything into your nose. If bleeding reoccurs reapply pressure at the base of nasal bones as shown in the ED for 20 minutes DO NOT LET UP PRESSURE. If that does not work. May use Jose-Synephrine spray 2 sprays each nostril then hold again for 20 minutes. If this does not control the bleeding continue holding pressure and recheck in the ED or clinic. Starting in the morning. 2 sprays of OTC saline nasal spray 4 times a day. Do this at least for the next 7 days and the as needed. May want to do this 2 daily to prevent recurrent bleeding. Speak with your CPAP company/shared services representative about getting another machine. In the mean time if you are still using your CPAP use the nasal spray prior to and during the night when you wake to keep your nasal passages moist. Return to the ED if new or worsening symptoms. Follow up with PCP if any concerns or problems. Sepsis Event Note (ED) - Evaluation Sepsis Screening Result: No Definite Risk - Focused Exam Vital Signs: Vital Signs Temp Pulse Resp BP Pulse Ox 04/02/21 23:04 97.2 F 65 14 130/71 97 - My Orders Last 24 Hours: My Active Orders 04/02/21 23:14 Phenylephrine [Jose-Synephrine 0.5% Regular Nasal [place]] 2 ml NASBOTH ONETIME ONE - Assessment/Plan Last 24 Hours: My Active Orders 04/02/21 23:14 Phenylephrine [Jose-Synephrine 0.5% Regular Nasal [place]] 2 ml NASBOTH ONETIME ONE
== END 2021-04-02 23:30 | disposition home or self-care (01) ==
LOC: LL.ED 22:56
DX: R04.0 Epistaxis (principal); I25.10 Atherosclerotic heart disease of native coronary artery without angina pectoris; E78.00 Pure hypercholesterolemia, unspecified; I10 Essential (primary) hypertension; N40.0 Benign prostatic hyperplasia without lower urinary tract symptoms; E11.9 Type 2 diabetes mellitus without complications; E03.9 Hypothyroidism, unspecified; E66.9 Obesity, unspecified; Z68.30 Body mass index [BMI] 30.0-30.9, adult; Z79.4 Long term (current) use of insulin; Z79.899 Other long term (current) drug therapy
CPT/HCPCS: 99283; A9270

== ENCOUNTER 2022-09-29 21:48 | Emergency (ER) | payer MEDICARE, BC ==
[2022-09-29 21:57] VITALS: BP 108/60; PULSE 83
[2022-09-29] MEDS ORDERED: cefTRIAXone 1 GM Vial IVPUSH ONE (22:16)
[2022-09-29] MEDS ORDERED: Sodium Chloride 0.9% 10 ML Syringe FLUSH PRN (22:16)
[2022-09-29] MEDS ORDERED: Diphtheria,Pertussis(Acell),Tetanus Vaccine 0.5 ML Syringe IM ONE (22:20)
== END 2022-09-29 22:57 ==
LOC: LL.ED 21:48
DX: S68.620A Partial traumatic transphalangeal amputation of right index finger, initial encounter (principal); I25.10 Atherosclerotic heart disease of native coronary artery without angina pectoris; E78.00 Pure hypercholesterolemia, unspecified; I10 Essential (primary) hypertension; M19.90 Unspecified osteoarthritis, unspecified site; E11.9 Type 2 diabetes mellitus without complications; E03.9 Hypothyroidism, unspecified; E66.9 Obesity, unspecified; Z23 Encounter for immunization; Z79.82 Long term (current) use of aspirin; Z79.899 Other long term (current) drug therapy; Z79.4 Long term (current) use of insulin; W26.8XXA Contact with other sharp object(s), not elsewhere classified, initial encounter
CPT/HCPCS: 73140-F6; 90471; 90715; 96374; 99284-25; J0696; J3490

== ENCOUNTER 2023-07-13 08:56 | Inpatient (IN) | payer MEDICARE ==
[2023-07-13] MEDS ORDERED: Enoxaparin 40 MG/0.4 ML Syringe SUBCUT SCH (14:45)
[2023-07-13] MEDS ORDERED: Glucagon,Human Recombinant 1 MG Vial IM PRN ×2 (15:29)
[2023-07-13] MEDS ORDERED: Sodium Chloride 0.9% 10 ML Syringe FLUSH PRN (15:29)
[2023-07-13] MEDS ORDERED: 50% Dextrose in Water 50 ML Syringe IVPUSH PRN (15:29)
[2023-07-13] MEDS: Acetaminophen 325 MG Tab PO SCH (16:02)
[2023-07-13] MEDS: Fluticasone NASAL Spray 16 GM Bottle NASBOTH SCH (17:11)
[2023-07-13] MEDS: Omeprazole 20 MG Cap.CR PO SCH (17:12)
[2023-07-13] MEDS: Sennosides 8.6 MG Tab PO SCH (17:14)
[2023-07-13] MEDS: DULoxetine 30 MG Cap PO SCH (17:14)
[2023-07-13] MEDS: Trospium 20 MG Tab PO SCH (17:15)
[2023-07-13] MEDS: Levothyroxine 150 MCG Tab PO SCH (17:15)
[2023-07-13] MEDS: Enoxaparin 40 MG/0.4 ML Syringe SUBCUT SCH (17:16)
[2023-07-13] MEDS: Insulin Lispro 100 Units/ML 3 ML Vial SUBCUT SCH (17:17)
[2023-07-13] MEDS ORDERED: Sodium Chloride 0.9% 10 ML Syringe FLUSH SCH (18:00)
[2023-07-13] MEDS: Albuterol/Ipratropium 3.0-0.5 MG/3 ML Neb Soln NEB SCH (19:39)
[2023-07-13] MEDS: Insulin Glarg,Human.Rec.Analog 100 Unit/ML 10 ML Vial SUBCUT SCH (19:41)
[2023-07-14] MEDS: traMADol 50 MG Tab PO PRN (00:56)
[2023-07-14] MEDS: Tamsulosin 0.4 MG Cap.ER PO SCH (07:23)
[2023-07-14] MEDS: Finasteride 5 MG Tab PO SCH (07:23)
[2023-07-14] MEDS: Magnesium Oxide 400 MG Tab PO SCH (07:23)
[2023-07-14] MEDS: Polyethylene Glycol 3350 Powder 17 GM Packet PO SCH (07:23)
[2023-07-14] MEDS: Rosuvastatin 10 MG Tab PO SCH (07:23)
[2023-07-15] MEDS: metFORMIN 500 MG Tab.ER PO SCH (07:37)
[2023-07-15] MEDS: Sennosides/Docusate Sodium 50-8.6 MG Tab PO SCH (07:38)
[2023-07-15] MEDS: Magnesium Oxide 400 MG Tab PO SCH (11:44)
[2023-07-15] MEDS: Lactulose Soln 10 GM/15 ML 30 ML UD Cup PO ONE (13:54)
[2023-07-15] MEDS: Lactulose Soln 10 GM/15 ML 30 ML UD Cup PO SCH (17:54)
[2023-07-16] MEDS ORDERED: Magnesium Hydroxide 400 MG/5 ML Susp 30 ML Cup PO PRN (12:00)
[2023-07-17] MEDS: Levothyroxine 150 MCG Tab PO SCH (17:08)
[2023-07-18] MEDS: metFORMIN 500 MG Tab.ER PO SCH (17:34)
[2023-07-19 08:12] VITALS: BP 140/71; PULSE 78
== END 2023-07-19 11:50 | disposition home or self-care (01) | DRG 561 ==
LOC: LL.MS 14:25
PROVIDERS: ADMIT Physician Assistant; ATTEND Family Medicine
DX: Z47.1 Aftercare following joint replacement surgery (principal); H91.90 Unspecified hearing loss, unspecified ear; I25.10 Atherosclerotic heart disease of native coronary artery without angina pectoris; E78.00 Pure hypercholesterolemia, unspecified; Z66 Do not resuscitate; I10 Essential (primary) hypertension; G47.30 Sleep apnea, unspecified; N40.0 Benign prostatic hyperplasia without lower urinary tract symptoms; M54.2 Cervicalgia; G89.29 Other chronic pain; M81.0 Age-related osteoporosis without current pathological fracture; F41.9 Anxiety disorder, unspecified; F32.A Depression, unspecified; E11.9 Type 2 diabetes mellitus without complications; E03.9 Hypothyroidism, unspecified; E66.9 Obesity, unspecified; K59.00 Constipation, unspecified; Z96.651 Presence of right artificial knee joint; Z79.82 Long term (current) use of aspirin; Z79.899 Other long term (current) drug therapy; Z79.84 Long term (current) use of oral hypoglycemic drugs; Z79.4 Long term (current) use of insulin; Z86.010 Personal history of colon polyps; Z87.81 Personal history of (healed) traumatic fracture; Z68.27 Body mass index [BMI] 27.0-27.9, adult; Z98.49 Cataract extraction status, unspecified eye; Z98.890 Other specified postprocedural states; Z98.84 Bariatric surgery status
CPT/HCPCS: 74019; 82947; 94640; 97110-GP; 97164-GP; 97530-GO; 97530-GP; 97535-GO; 99306; 99316; A9270-GY; J1650; J7620-GY